=== PATIENT | female | born 1990 | race Caucasian/White ===

== ENCOUNTER 2017-07-30 08:00 | Outpatient (CLI) | payer MEDICAID | END 2017-07-30 08:01 | LOC: LAB.R 08:00 | PROVIDERS: ATTEND Obstetrics & Gynecology | DX: Z11.3 Encounter for screening for infections with a predominantly sexual mode of transmission (principal) | CPT/HCPCS: 87491; 87591 ==

== ENCOUNTER 2018-05-10 16:14 | Outpatient (CLI) | payer MEDICAID | END 2018-05-10 16:15 | disposition home or self-care (01) | LOC: LAB 16:14 | PROVIDERS: ATTEND Registered Nurse | DX: O20.9 Hemorrhage in early pregnancy, unspecified (principal); Z3A.00 Weeks of gestation of pregnancy not specified | CPT/HCPCS: 36415; 84702; 86900; 86901 ==

== ENCOUNTER 2018-05-11 16:57 | Outpatient (CLI) | payer MEDICAID ==
--- NOTE | 2018-05-11 18:39 | Ultrasound Report ---
Reason: VAGINAL BLEEDING,FIRST TRIMESTER Procedure Date: 05/11/2018 Accession Number: [id number] / [id number] Procedure: US - OB First Trimester CPT Code: FULL RESULT: EXAM: FIRST TRIMESTER OBSTETRIC ULTRASOUND (Less than 11 weeks) EXAM DATE: 05/11/2018 05:36 PM. CLINICAL HISTORY: 28-year-old female. VAGINAL BLEEDING,FIRST TRIMESTER. LMP: 03/22/2018. COMPARISONS: None. TECHNIQUE: Transabdominal and transvaginal ultrasound examination with static image documentation. CLINICAL DATES: EGA 7 weeks 1 day with LIAT 12/27/2018 based on LMP. ASSESSMENT: Gestational Sac: Single intrauterine. Somewhat flattened/elongated. Mean gestational sac diameter: 9.7 mm = 5 weeks 0 days. Embryo: Not identified. Yolk sac: Not identified. Amniotic fluid: Not accurately assessed at this gestational age. Early placenta: Not visible at this gestational age. Other: No perigestational fluid collection demonstrated. The endometrium has a somewhat dynamic appearance on real-time imaging. MATERNAL STRUCTURES: Uterus: Anteverted. Unremarkable. Cervix: Closed. Right Ovary/Adnexa: The ovary measures 3.6 x 1.9 x 3.2 cm, volume 11.4 cc. Unremarkable. Left Ovary/Adnexa: The ovary measures 2.0 x 1.6 x 2.4 cm, volume 4.0 cc. Unremarkable. Free Fluid: Trace. Other: None. IMPRESSION: 1. Single intrauterine at EGA 5 weeks 0 days based on mean sac diameter, which is discordant with EGA 7 weeks 1 day based on LMP. Ultrasound follow-up after 2 weeks could be used to reassess viability. 2. No perigestational hemorrhage is identified. RADIA
== END 2018-05-11 16:58 | disposition home or self-care (01) ==
LOC: DI 16:57
PROVIDERS: ATTEND Registered Nurse
DX: O46.91 Antepartum hemorrhage, unspecified, first trimester (principal)
CPT/HCPCS: 76801; 76817

== ENCOUNTER 2018-10-15 09:46 | Outpatient (CLI) | payer MEDICAID ==
--- NOTE | 2018-10-16 15:12 | Ultrasound Report ---
Reason: HX OF ECTOPIC , POSITIVE PREGANCY TEST Procedure Date: 10/15/2018 Accession Number: [id number] / [id number] Procedure: US - OB First Trimester CPT Code: FULL RESULT: EXAM: FOLLOW-UP OBSTETRICAL ULTRASOUND EXAM DATE: 10/15/2018 10:15 AM. CLINICAL HISTORY: HX OF ECTOPIC , POSITIVE TEST. The patient believes she had a miscarriage after exam 05/11/2018. COMPARISON: 05/11/2018 5:09 PM. TECHNIQUE: Real-time sonographic evaluation of the fetus performed by the prevention coordinator. Multiple sales representative consultant static images were saved for review. DATING: LMP: Unknown. EGA 22 weeks, 3 days with LIAT 02/15/2019 based on the current ultrasound. GENERAL EVALUATION Enciso . Cardiac activity: 147 bpm. movement: Visualized. Presentation: Cephalic. Placenta: Posterior position. Amniotic fluid: Normal. BERNARDO 12.7 cm. MVP 3.5 cm. BIOMETRY Bi-Parietal Diameter (BPD): 5.4 cm, 22 weeks, 4 days Head Circumference (HC): 20 cm, 22 weeks, 3 days Abdominal Circumference (AC): 17 cm, 22 weeks, 0 days Femur Length (FL): 3.9 cm, 22 weeks, 3 days Estimated Weight: 486 g, 72 g . ANATOMY No anatomic abnormality evident on limited views for biometry. A full survey was not performed. MATERNAL STRUCTURES Cervix appeared long and closed measuring 4.4 cm on transabdominal imaging. Uterus and bilateral adnexal regions appear unremarkable. Neither ovary was identified. IMPRESSION: 1. Enciso live intrauterine with gestational age 22 weeks, 3 days based on present ultrasound. 2. A full survey was not performed today. Suggest routine survey to further assess. TYRONE
== END 2018-10-15 09:47 | disposition home or self-care (01) ==
LOC: DI 09:46
PROVIDERS: ATTEND Obstetrics & Gynecology
DX: O09.12 Supervision of pregnancy with history of ectopic pregnancy, second trimester (principal); Z3A.22 22 weeks gestation of pregnancy
CPT/HCPCS: 76801

== ENCOUNTER 2018-10-28 11:34 | Outpatient (CLI) | payer MEDICAID ==
[2018-10-28 15:43] LABS: BILIRUBIN,URINE NEGATIVE (NEGATIVE); GLUCOSE, URINE (UA) NEGATIVE (NEGATIVE); KETONES,URINE (UA) NEGATIVE (NEGATIVE); LEUKOCYTE ESTERASE, URINE SMALL (NEGATIVE); NITRITE,URINE NEGATIVE (NEGATIVE); OCCULT BLOOD,URINE NEGATIVE (NEGATIVE); PROTEIN,URINE NEGATIVE (NEGATIVE); UROBILINOGEN,URINE 0.2 (NORMAL) E.U./dL (NORMAL)
[2018-10-28 15:50] LABS: CLARITY,URINE CLEAR (CLEAR)
[2018-10-28 15:51] LABS: BACTERIA,URINE Rare /HPF (None Seen); RBC,URINE None Seen /HPF (0-5); SQUAMOUS EPITHELIAL CELL,UR MANY Squamous (<= Few)
[2018-10-28 23:17] LABS: CANDIDA GROUP DNA NEGATIVE (NEGATIVE); CANDIDA KRUSEI DNA NEGATIVE (NEGATIVE); TRICHOMONAS VAGINALIS DNA NEGATIVE (NEGATIVE)
== END 2018-10-28 23:59 | disposition home or self-care (01) ==
LOC: LAB.R 11:34
PROVIDERS: ATTEND Obstetrics & Gynecology
DX: Z34.90 Encounter for supervision of normal pregnancy, unspecified, unspecified trimester (principal)
CPT/HCPCS: 80306; 81001; 81599; 87086; 87661; 87801

== ENCOUNTER 2018-11-10 08:47 | Outpatient (CLI) | payer MEDICAID ==
--- NOTE | 2018-11-12 10:05 | Ultrasound Report ---
Reason: SUPERVISION OF NORMAL Procedure Date: 11/10/2018 Accession Number: [id number] / [id number] Procedure: US - OB Detailed Eval CPT Code: FULL RESULT: EXAM: COMPLETE OBSTETRICAL ULTRASOUND EXAM DATE: 11/10/2018 10:37 AM. CLINICAL HISTORY: anatomic survey. COMPARISON: OB DETAILED EVAL 08/23/2015 12:43 PM. TECHNIQUE: Real-time sonographic evaluation of the fetus performed by the wafer slicer. Multiple financial services sales representative static images were saved for review. DATING: The examination is somewhat limited by late gestational age. Established EGA 26 weeks 1 day with LIAT 02/15/2019 based on first ultrasound. EGA 25 weeks 0 days with LIAT 02/23/2019 based on the current ultrasound. GENERAL EVALUATION Enciso . Cardiac activity: 149 bpm. movement: Visualized. Presentation: Breech Placenta: Posterior position. No evidence for previa. Umbilical cord: 3 vessel cord. Central placental cord origin. Amniotic fluid: Subjectively normal. MVP 4.1 cm and BERNARDO 15.3 cm. BIOMETRY Bi-Parietal Diameter (BPD): 6.1 cm, 24 weeks 5 days Head Circumference (HC): 23.2 cm, 25 weeks 2 days Abdominal Circumference (AC): 19.3 cm, 24 weeks 0 days Femur Length (FL): 4.7 cm, 25 weeks 6 days Estimated Weight: 739 g, 5th percentile for 26 weeks 1 day. ANATOMY The intracranial structures, profile, face/nose/lips, spine, 4 chamber heart and outflow tracts, stomach, abdominal wall and cord insertion, diaphragm, kidneys, bladder, and extremities were visualized and demonstrate no abnormality. MATERNAL STRUCTURES Uterus: Unremarkable. Cervix: Long and closed. Transabdominal length 4.2 cm. Right ovary/adnexa: Unremarkable. Left ovary/adnexa: Unremarkable. Free fluid: None. IMPRESSION: 1. Enciso live intrauterine with gestational age 26 weeks 1 day based on working due date as established by first ultrasound. 2. Interval growth is suggestive of intrauterine growth retardation, symmetric. Umbilical artery Doppler should be performed. Recommend serial followup ultrasound (not more frequently than every 2 weeks, generally recommended to be every 3-4 weeks) for growth assessment and uterine artery Doppler in conjunction with standard surveillance (NST and/or BPP) 3. Normal anatomic survey. No anatomic abnormalities are detected at this time. RADIA The call report notification system was initiated by Dr. Narinder Davila at 10:03 AM on 11/12/2018. The above call report findings were discussed with Dr. Machado by Dr. Narinder Davila at 10:09 AM on 11/12/2018.
== END 2018-11-10 08:48 | disposition home or self-care (01) ==
LOC: DI 08:47
PROVIDERS: ATTEND Obstetrics & Gynecology
DX: Z34.92 Encounter for supervision of normal pregnancy, unspecified, second trimester (principal)
CPT/HCPCS: 36415; 76811; 81599; 82950; 85025; 86762; 86803; 86850; 86900; 86901; 87340; 87389

== ENCOUNTER 2018-11-10 10:33 | Outpatient (CLI) | payer MEDICAID ==
[2018-11-10 12:04] LABS: BASOPHILS % (AUTO) 0.1 %; EOSINOPHILS # (AUTO) 0.1 10^3/uL (0.0-0.7); EOSINOPHILS % (AUTO) 1.5 %; HGB - HEMOGLOBIN 11.8 g/dL (12.0-16.0); LYMPHOCYTES # (AUTO) 1.6 10^3/uL (1.5-3.5); MEAN CORPUSCULAR HEMOGLOBIN 29.9 pg (27.0-31.0); MEAN CORPUSCULAR HGB CONC 33.2 g/dL (32.0-36.0); MEAN CORPUSCULAR VOLUME 89.9 fL (81.0-99.0); MEAN PLATELET VOLUME 9.2 fL (7.9-10.8); MONOCYTES # (AUTO) 0.3 10^3/uL (0.0-1.0); MONOCYTES % (AUTO) 4.2 %; NEUTROPHILS % (AUTO) 70.8 %; PLT - PLATELET COUNT 152 10^3/uL (130-450); RED BLOOD COUNT 3.95 10^6/uL (4.20-5.40); RED CELL DISTRIBUTION WIDTH 13.6 % (12.0-15.0); WHITE BLOOD COUNT 7.1 x10^3/uL (4.8-10.8)
[2018-11-11 15:21] LABS: HIV AG/AB 4TH GEN NON-REACTIVE (NON-REACTIVE)
[2018-11-11 16:56] LABS: HEPATITIS B SURFACE ANTIGEN NON-REACTIVE (NON-REACTIVE); HEPATITIS C ANTIBODY NON-REACTIVE (NON-REACTIVE)
== END 2018-11-10 10:34 | disposition home or self-care (01) ==
LOC: LAB 10:33
PROVIDERS: ATTEND Obstetrics & Gynecology
DX: Z34.90 Encounter for supervision of normal pregnancy, unspecified, unspecified trimester (principal)
CPT/HCPCS: 36415; 81599; 82950; 85025; 86762; 86803; 86850; 86900; 86901; 87340; 87389

== ENCOUNTER 2018-12-17 08:00 | Outpatient (CLI) | payer MEDICAID | END 2018-12-17 23:59 | disposition home or self-care (01) | LOC: LAB.R 08:00 | PROVIDERS: ATTEND Obstetrics & Gynecology | DX: N30.00 Acute cystitis without hematuria (principal) | CPT/HCPCS: 87086 ==

== ENCOUNTER 2018-12-26 10:08 | Emergency (ER) | payer MEDICAID ==
[2018-12-26] MEDS ORDERED: CYCLOBENZAPRINE 10 MG TABLET PO STA (10:30)
--- NOTE | 2018-12-26 10:32 | ED Physician Documentation ---
PD HPI BACK PAIN - Stated complaint Stated Complaint: BACK PX - Chief complaint Chief Complaint: Back Pain - History obtained from History obtained from: Patient - History of Present Illness Timing - onset: Last night Timing - duration: Days (1) Timing - details: Gradual onset Pain level max: 10 Pain level now: 10 Location: Lower, Right, Left Quality: Pain, Spasm Associated symptoms: No: Fever, Weakness, Numbness, Incontinent of urine, Unable to urinate, Hematuria, Incontinent of stool Improves with: Rest Worsened by: Movement Similar symptoms before: Has not had sx before - Additional information Additional information: 28-year-old female 4 para 3 approximately 33 weeks . Presents with low back pain. Feels like spasming. States it is difficult to walk and stand up straight. Took Tylenol without relief. Review of Systems Constitutional: denies: Fever, Chills Respiratory: denies: Cough GI: denies: Vomiting, Diarrhea : denies: Dysuria, Frequency, Hesitancy, Incontinent Skin: denies: Rash Musculoskeletal: denies: Neck pain Neurologic: denies: Focal weakness, Numbness, Headache PD PAST MEDICAL HISTORY - Past Medical History Past Medical History: No - Past Surgical History Past Surgical History: Yes /FLORIST: Dilation and currettage - Present Medications Home Medications: Ambulatory Orders Medication Instructions Recorded Confirmed Ibuprofen [Motrin] 800 mg PO Q8H PRN #30 tablet 12/12/15 Cyclobenzaprine [Flexeril] 10 mg PO TID PRN #20 tablet 12/26/18 - Allergies Allergies/Adverse Reactions: Allergies Allergy/AdvReac Type Severity Reaction Status Date / Time No Known Drug Allergies Allergy Verified 04/25/13 03:34 - Social History Does the pt smoke?: No Smoking Status: Never smoker Does the pt drink ETOH?: No Does the pt have substance abuse?: No - Immunizations Immunizations are current?: Yes PD ED PE NORMAL - Vitals Vital signs reviewed: Yes - General General: Alert and oriented X 3, No acute distress, Well developed/nourished - HEENT HEENT: Moist mucous membranes - Neck Neck: Supple, no meningeal sign - Cardiac Cardiac: RRR, Strong equal pulses - Respiratory Respiratory: No respiratory distress, Clear bilaterally - Abdomen Abdomen: Soft, Non tender, Non distended - Back Back: No spinal TTP (No midline tenderness to palpation. No step-off or deformity. Paraspinal spasm present bilateral low lumbar.) - Derm Derm: Warm and dry, No rash - Extremities Extremities: No edema, Other (Normal bilateral lower extremity patellar and ankle jerk reflexes. Normal great toe extension bilaterally. no saddle anesthesia) - Neuro Neuro: Alert and oriented X 3, No motor deficit, No sensory deficit - Psych Psych: Normal mood, Normal affect Results - Vitals Vitals: Vital Signs - 24 hr 12/26/18 12/26/18 12/26/18 10:11 11:10 11:41 Temperature 36 C L 36.3 C L Heart Rate 95 78 74 Respiratory 18 17 17 Rate Blood Pressure 110/78 119/76 119/74 O2 Saturation 100 99 99 Oxygen O2 Source Room air - Labs Labs: Laboratory Tests 12/26/18 12/26/18 12/26/18 10:39 10:39 11:00 WBC 8.4 RBC 4.30 Hgb 13.0 Hct 37.9 MCV 88.1 MCH 30.2 MCHC 34.3 RDW 13.3 Plt Count 154 MPV 9.0 Neut # (Auto) 6.2 Lymph # (Auto) 1.6 [place] # (Auto) 0.4 Eos # (Auto) 0.1 Baso # (Auto) 0.0 Absolute Nucleated RBC 0.00 Nucleated RBC % 0.0 Sodium 139 Potassium 3.4 L Chloride 108 Carbon Dioxide 22 Anion Gap 9.0 BUN 6 Creatinine 0.5 Estimated GFR (MDRD) 146 Glucose 89 Calcium 9.1 Total Bilirubin < 0.2 L AST 16 ALT 11 Alkaline Phosphatase 76 Total Protein 6.7 Albumin 3.3 Globulin 3.4 Albumin/Globulin Ratio 1.0 Lipase 26 Urine Color YELLOW Urine Clarity CLEAR Urine pH 7.5 Ur Specific [place] 1.010 Urine Protein NEGATIVE Urine Glucose (UA) NEGATIVE Urine Ketones NEGATIVE Urine Occult Blood NEGATIVE Urine Nitrite NEGATIVE Urine Bilirubin NEGATIVE Urine Urobilinogen 0.2 (NORMAL) Ur Leukocyte Esterase MODERATE H Urine RBC 0-5 Urine WBC 4-5 Ur Squamous Epith Cells MOD Squamous H Urine Bacteria Rare Ur Microscopic Review INDICATED Urine Culture Comments NOT INDICATED PD MEDICAL DECISION MAKING - ED course Complexity details: reviewed results, re-evaluated patient, considered differential, d/w patient, d/w family, d/w sales and leasing consultant (Discussed the case with Dr. Esqueda, OB on-call who recommends Flexeril for the spasm.) ED course: Patient feels much better after Flexeril. OB nurses came to the department and monitored the patient. No evidence of labor at this time. We will follow-up with OB for further care. Patient counseled regarding signs and symptoms for which I believe and urgent re-evaluation would be necessary. Patient with good understanding of and agreement to plan and is comfortable going home at this justo e This document was made in part using voice recognition software. While efforts are made to proofread this document, sound alike and grammatical errors may occur. Departure - Departure Disposition: 01 Home, Self Care Clinical Impression: Back spasm Condition: Good Instructions: ED Spasm Back No Trauma Follow-Up: Ovidio Tirado MD [Provider Admit Priv/Credential] - Within 3 Days Prescriptions: Cyclobenzaprine [Flexeril] 10 mg PO TID PRN #20 tablet PRN Reason: Spasms Comments: Return if you worsen. Follow-up with OB for further care. You can take Tylenol at home as well. You can use heating pads and gentle stretching as well. Do not drive or operate heavy machinery while taking the Flexeril Discharge Date/Time: 12/26/18 11:40
[2018-12-26 10:45] LABS: BASOPHILS % (AUTO) 0.2 %; EOSINOPHILS # (AUTO) 0.1 10^3/uL (0.0-0.7); LYMPHOCYTES # (AUTO) 1.6 10^3/uL (1.5-3.5); LYMPHOCYTES % (AUTO) 19.1 %; MEAN CORPUSCULAR HEMOGLOBIN 30.2 pg (27.0-31.0); MEAN CORPUSCULAR HGB CONC 34.3 g/dL (32.0-36.0); MEAN CORPUSCULAR VOLUME 88.1 fL (81.0-99.0); MONOCYTES # (AUTO) 0.4 10^3/uL (0.0-1.0); MONOCYTES % (AUTO) 5.2 %; NEUTROPHILS # (AUTO) 6.2 10^3/uL (1.5-6.6); NEUTROPHILS % (AUTO) 73.9 %; PLT - PLATELET COUNT 154 10^3/uL (130-450); RED CELL DISTRIBUTION WIDTH 13.3 % (12.0-15.0); WHITE BLOOD COUNT 8.4 x10^3/uL (4.8-10.8)
[2018-12-26 11:06] LABS: ALBUMIN 3.3 g/dL (3.2-5.5); ALKALINE PHOSPHATASE 76 IU/L (42-121); ALT ALANINE AMINOTRANSFERASE 11 IU/L (10-60); AST ASPARTATE AMINOTRANSFERASE 16 IU/L (10-42); BILIRUBIN,TOTAL < 0.2 mg/dL (0.2-1.0); BUN - BLOOD UREA NITROGEN 6 mg/dL (6-20); CALCIUM 9.1 mg/dL (8.5-10.3); CARBON DIOXIDE - CO2 22 mmol/L (21-32); CHLORIDE 108 mmol/L (101-111); CREATININE 0.5 mg/dL (0.4-1.0); GFR - MDRD 146 (>89); GLUCOSE 89 mg/dL (70-100); LIPASE 26 U/L (22-51); SODIUM 139 mmol/L (135-145); TOTAL PROTEIN 6.7 g/dL (6.7-8.2)
[2018-12-26 11:42] VITALS: BP 119/74
[2018-12-26 11:46] LABS: BILIRUBIN,URINE NEGATIVE (NEGATIVE); GLUCOSE, URINE (UA) NEGATIVE (NEGATIVE); KETONES,URINE (UA) NEGATIVE (NEGATIVE); LEUKOCYTE ESTERASE, URINE MODERATE (NEGATIVE); NITRITE,URINE NEGATIVE (NEGATIVE); OCCULT BLOOD,URINE NEGATIVE (NEGATIVE); PH,URINE 7.5 PH (5.0-7.5); PROTEIN,URINE NEGATIVE (NEGATIVE); UROBILINOGEN,URINE 0.2 (NORMAL) E.U./dL (NORMAL)
[2018-12-26 11:57] LABS: CLARITY,URINE CLEAR (CLEAR)
[2018-12-26 12:00] LABS: BACTERIA,URINE Rare /HPF (None Seen); RBC,URINE 0-5 /HPF (0-5); SQUAMOUS EPITHELIAL CELL,UR MOD Squamous (<= Few)
--- NOTE | 2018-12-29 14:36 | PROCEDURE REPORT ---
- HPI Vital Signs Temperature 36 C L 12/26/18 10:11 Heart Rate 95 12/26/18 10:11 Respiratory Rate 18 12/26/18 10:11 Blood Pressure 110/78 12/26/18 10:11 O2 Saturation 100 12/26/18 10:11 Temperature 36.3 C L 12/26/18 11:41 Heart Rate 74 12/26/18 11:41 Respiratory Rate 17 12/26/18 11:41 Blood Pressure 119/74 12/26/18 11:41 O2 Saturation 99 12/26/18 11:41 The patient was seen in the emergency room by the emergency room physician who ordered an NST.She was in the emergency room for non-OB related issue. - NST Procedure The NST was reactive. This was read on 12/29/2018. - Results and Plan Findings/Impression: Impression: Reactive NST planPatient will follow-up in the office for her usual visit.
== END 2018-12-26 11:40 | disposition home or self-care (01) ==
LOC: ED 10:08
DX: O99.89 Other specified diseases and conditions complicating pregnancy, childbirth and the puerperium (principal); M62.830 Muscle spasm of back
CPT/HCPCS: 36415; 80053; 81001; 83690; 85025; 99283; 99284; A9270; 81003; 87086

== ENCOUNTER 2019-01-21 08:00 | Outpatient (CLI) | payer MEDICAID | END 2019-01-21 23:59 | disposition home or self-care (01) | LOC: LAB.R 08:00 | PROVIDERS: ATTEND Obstetrics & Gynecology | DX: Z34.90 Encounter for supervision of normal pregnancy, unspecified, unspecified trimester (principal) | CPT/HCPCS: 87797 ==

== ENCOUNTER 2019-02-05 11:56 | Inpatient (IN) | payer MEDICAID ==
[2019-02-05] MEDS ORDERED: ONDANSETRON 4 MG/2 ML VIAL IVP PRN (14:15)
[2019-02-05] MEDS ORDERED: fentaNYL 100 MCG/2 ML VIAL IVP PRN (14:15)
[2019-02-05] MEDS ORDERED: SODIUM CHLORIDE FLUSH 0.9% 10 ML SYRINGE IVP PRN (14:15)
[2019-02-05] MEDS ORDERED: AMPICILLIN 2 GM in SODIUM CHLORIDE 0.9% MINIBAG 100 ML IV ONE (14:15)
[2019-02-05] MEDS ORDERED: miSOPROStol 200 MCG TABLET ONE (14:18)
[2019-02-05] MEDS ORDERED: OXYTOCIN/DEXTROSE 5 % 30 UNIT/500 ML BAG IV ONE (14:19)
[2019-02-05] MEDS ORDERED: LACTATED RINGERS 1,000 ML IV ONE (14:19)
[2019-02-05] MEDS ORDERED: SODIUM CHLORIDE FLUSH 0.9% 10 ML SYRINGE ONE (14:19)
--- NOTE | 2019-02-05 14:21 | HISTORY & PHYSICAL EXAMINATION ---
Admit History - Smoking Status: Never smoker - Mother's Labs Mother's Blood Type: positive: O Mother's RH: positive: Positive GBS: positive: Group B Strep Positive Rubella Status: positive: Immune - Other Maternal History Other Maternal History: Chief complaint: Contractions History chief complaint: Patient is a well-developed, well-nourished, 28 -year-old 7 para 3-0-3-3 white female with a LIAT of 02/15/2019 making her 38 weeks and 4 days gestation today. She comes in with today with a complaint of contractions for the past 4 days. They got stronger over the last 24 hours. She denies any vaginal bleeding or fluid.She is O positive rubella immune and GBS positive. She does know that she will need antibiotic prophylaxis during labor.Her course has been essentially unremarkable. Meds/Allgy - Home Medications Home Medications: Ambulatory Orders Medication Instructions Recorded Confirmed Ibuprofen [Motrin] 800 mg PO Q8H PRN #30 tablet 12/12/15 Cyclobenzaprine [Flexeril] 10 mg PO TID PRN #20 tablet 12/26/18 - Allergies Allergies/Adverse Reactions: Allergies Allergy/AdvReac Type Severity Reaction Status Date / Time No Known Drug Allergies Allergy Verified 04/25/13 03:34 Review of Systems - Constitutional Constitutional: denies: Fatigue, Fever, Chills, Malaise - Eyes Eyes: denies: Pain, Irritation, Amaurosis, Blurred vision, Spots in vision, Field loss - Ears, Nose & Throat Ears, Nose & Throat: reports: Postnasal drainage. denies: Ear pain, Hearing loss, Hearing aids, Tinnitus, Vertigo, Nasal pain, Nasal discharge, Nasal obstruction, Sore throat, Hoarseness, Mouth lesions - Cardiovascular Cariovascular: denies: Irregular heart rate, Palpitations, Chest pain, Edema, Lightheadedness, Syncope, Exertional dyspnea - Respiratory Respiratory: denies: Cough, Sputum production, Wheezing, Snoring, Hemoptysis, Orthopnea - Gastrointestinal Gastrointestinal: denies: Abdominal pain, Abdominal distention, Diarrhea, Change in bowel habits, Black stools, Nausea, Vomiting, Bile emesis - Genitourinary Genitourinary: denies: Dysuria, Urgency, Hematuria, Incontinence, Flank pain, Urethral discharge - Musculoskeletal Musculoskeletal: denies: Muscle pain, Muscle aches, Stiffness, Limited range of motion, Muscle weakness, Gout - Integumentary Integumentary: denies: Rash, Pruritis, Lesions, Dryness, Lumps - Neurological Neurological: denies: General weakness, Focal weakness, Headache, Dizziness, Numbness - Psychiatric Psychiatric: denies: Depression, Anxiety, Suicidal, Delusions, Hallucinations - Endocrine Endocrine: denies: Polyuria, Polydypsia, Polyphagia, Intolerance to cold, Intolerance to heat - Hematologic/Lymphatic Hematologic/Lymphatic: denies: Anemia, Bruising, Petechiae, Blood clots, Lymphadenopathy, Bleeding tendencies Physical - Abdominal Exam Vital Signs: Temp Pulse Resp BP Pulse Ox 36.6 C 69 20 113/73 100 02/05/19 12:09 02/05/19 12:09 02/05/19 12:09 02/05/19 12:09 02/05/19 12:09 Contraction Frequency (min/apart): 3-6 Contraction Intensity: positive: Moderate to strong Uterine Resting Tone: positive: Soft - Monitoring Strip Review: positive: Category I - Presentation Presentation: positive: Vertex - Vaginal Exam Membranes: positive: Membranes intact Dilation (in cm): 4 Effacement (%): 90 Station: positive: -1 Cervical Position: positive: Midposition - Other Notes Labor Progress Note/Additional Text: Heart: Heart has a regular rate and rhythm without murmur Lungs: Lungs are clear to auscultation bilaterally Abdomen: The abdomen is soft, pliable and nontender. The uterus is soft and nontender between moderate to firm contractions. Pelvic. The cervix is dilated 4 cm / 90%/-1 There is a category 1 EFM noted Plan for Labor - Plan For Labor I expect patient to be DC'd or transferred within 96 hours.: Yes Plan for Labor: Impression: Intrauterine at 38 weeks 4 days gestation Latent phase labor GBS positive Plan:This patient is going to be admitted for labor. She will be given prophylactic antibiotics. We will follow her closely.
[2019-02-05 14:45] LABS: BASOPHILS % (AUTO) 0.2 %; EOSINOPHILS # (AUTO) 0.1 10^3/uL (0.0-0.7); EOSINOPHILS % (AUTO) 0.8 %; HGB - HEMOGLOBIN 12.3 g/dL (12.0-16.0); LYMPHOCYTES # (AUTO) 1.8 10^3/uL (1.5-3.5); LYMPHOCYTES % (AUTO) 18.1 %; MEAN CORPUSCULAR HEMOGLOBIN 30.2 pg (27.0-31.0); MEAN CORPUSCULAR HGB CONC 33.7 g/dL (32.0-36.0); MEAN CORPUSCULAR VOLUME 89.7 fL (81.0-99.0); MEAN PLATELET VOLUME 9.7 fL (7.9-10.8); MONOCYTES # (AUTO) 0.5 10^3/uL (0.0-1.0); MONOCYTES % (AUTO) 5.2 %; NEUTROPHILS # (AUTO) 7.6 10^3/uL (1.5-6.6); NEUTROPHILS % (AUTO) 75.1 %; PLT - PLATELET COUNT 180 10^3/uL (130-450); RED BLOOD COUNT 4.07 10^6/uL (4.20-5.40); RED CELL DISTRIBUTION WIDTH 13.4 % (12.0-15.0); WHITE BLOOD COUNT 10.2 x10^3/uL (4.8-10.8)
[2019-02-05] MEDS ORDERED: LACTATED RINGERS 1,000 ML IV SCH ×2 (15:00→19:00)
--- NOTE | 2019-02-05 16:05 | PROVIDER PROGRESS NOTE ---
Labor Progress Note - Labor Progress Note Labor Progress Note/Additional Text: The patient cervix remains the same. She now has an IV going in her ampicillin is running.An attempt was made to rupture her membranes. I am truly not sure whether they ruptured or not. She does have a bloody show.There is a category 1 EFM noted. She is isaias every 3 minutes but they are truly now mild to moderate at most.We will continue to follow her closely.
--- NOTE | 2019-02-05 16:09 | PROVIDER PROGRESS NOTE ---
Labor Progress Note - Labor Progress Note Labor Progress Note/Additional Text: The patient is still isaias about every 3 minutes. They are moderate to firm. She got up to go to the bathroom and did have a big gush of clear fluid.There is still a category 1 EFM noted. Her cervix is now 6 cm dilated 80% and 0. We will continue to follow her closely.
[2019-02-05] MEDS ORDERED: SODIUM CHLORIDE FLUSH 0.9% 10 ML SYRINGE IVP SCH (17:00)
[2019-02-05] MEDS: ACETAMINOPHEN 325 MG TABLET PO SCH (17:09)
--- NOTE | 2019-02-05 17:44 | PROVIDER PROGRESS NOTE ---
Labor Progress Note - Labor Progress Note Labor Progress Note/Additional Text: The patient became more uncomfortable. A check of her cervix reveals the cervix to be complete with respect to cervical dilatation. The fetus is at a 0 to +1 station.A category 1 EFM is still appreciated. She is isaias every 2 to 3 minutes with firm contractions.She cannot really feel her contractions though she is complaining of pain. We will have anesthesia come to reassess the epidural. We I talked to the patient about still being able to feel contractions when they happen so that she can push.We will let the fetus labor down over the next hour. And As long as the fetus remains stable We will begin with expulsatory efforts after that.
[2019-02-05] MEDS ORDERED: HYDROcod/ACETAM 5/325 MG TABLET PO PRN (17:45)
--- NOTE | 2019-02-05 17:55 | DELIVERY NOTE ---
Delivery Note - Labor Labor: positive: Spontaneous - Delivery Method Delivery Method: positive: Spontaneous vaginal delivery - Presentation Presentation: positive: Vertex, MATTI - right occiput anterior - Nuchal Cord Nuchal Cord: positive: None - Amniotic Fluid Description Amniotic Fluid Description: positive: Clear - Episiotomy Type Episiotomy Type: positive: None - Laceration Laceration: positive: None - Delivery Outcome Delivery Outcome: positive: Livebirth - [place]: positive: Placed in direct skin contact with mother [place] sex: positive: Female : Apgars 9 and 9 - Cord Cord: positive: 3 vessels - Placenta Placenta: positive: Intact, Spontaneous - Estimated Blood Loss Estimated Blood Loss (in cc): 100 - Post Delivery Events Post Delivery Events: positive: No post delivery events - Delivery Comments (Free Text/Narrative) Delivery Comments (Free Text/Narrative): The patient came to Labor and delivery earlier this afternoon complaining of contractions for the last 2 days. Her cervix was 4 cm at the time membranes were intact. She was admitted and IV was begun she was given ampicillin 2 g IV to load and prophylaxis because she is GBS positive.She actually followed a somewhat precipitous multiparous labor curve and was found to be complete with respect to cervical dilatation approximately 1720 hrs. There was a category 1 EFM noted noted through the entire labor and delivery process. The patient reached complete with respect to cervical dilatation at approximately 17 2000 hrs. The fetus was now at a +2 to +3 station.At 17 2500 hours she delivered a viable female over an intact perineum. Upon delivery needle head the start of the neck was checked for any cords and none were noted. The rest of the was then delivered and passed up onto the mother's chest.This was a very precipitous delivery. Once the cord it stopped pulsating it was doubly clamped. The father of the baby then cut the cord.The placenta was then delivered intact with 3 vessels at approximately 17 32 hours. 30 units Pitocin IV drip were given. The cervix and the vaginal vault were found to be intact. The uterus was isaias down firmly lochia was exceptionally light. Estimated blood loss was 100 mL's.The fetus is a viable female whose weight is pending at the present time. She had Apgars of 9 and 9 at 1 and 5 minutes respectively.Both the and the patient were allowed to remain in the LDR P both in stable condition.
[2019-02-05] MEDS ORDERED: OXYTOCIN/DEXTROSE 5 % 30 UNIT/500 ML BAG IV PRN (18:01)
[2019-02-05] MEDS: IBUPROFEN 600 MG TABLET PO SCH (22:40)
[2019-02-06] MEDS: ACETAMINOPHEN 325 MG TABLET PO SCH ×4 (01:06→22:25)
[2019-02-06] MEDS: IBUPROFEN 600 MG TABLET PO SCH ×3 (04:40→18:57)
--- NOTE | 2019-02-06 10:09 | PROVIDER PROGRESS NOTE ---
Subjective - Prog Note Date Prog Note Date: 02/06/19 Prog Note Time: 10:06 - Subjective Subjective: The patient is doing well and is without complaint. She is breast-feeding well. She exam very well and tolerating diet well. She is voiding without difficulty. Lochia is light. Objective - Vital Signs/Intake & Output Vital Signs: Vital Signs x48h Temp Pulse Resp BP Pulse Ox 02/06/19 08:07 36.9 C 72 16 114/68 96 02/06/19 04:42 36.7 C 65 16 101/71 99 Intake & Output: Intake & Output 02/03/19 02/04/19 02/05/19 02/06/19 23:59 23:59 23:59 23:59 Intake Total 1250 500 Output Total 1650 Balance -400 500 - Objective General Appearance: positive: No acute distress, Alert Abdomen: positive: Non-tender, No organomegaly, Nml bowel sounds (The uterus is firm 2 FB below the umbilicus. It is nontender.) - Lab Results Fish Bones: 02/05/19 14:15 Other Labs: Lab Results x24hrs 02/05/19 Range/Units 14:15 WBC 10.2 (4.8-10.8) x10^3/uL RBC 4.07 L (4.20-5.40) 10^6/uL Hgb 12.3 (12.0-16.0) g/dL Hct 36.5 L (37.0-47.0) % MCV 89.7 (81.0-99.0) fL MCH 30.2 (27.0-31.0) pg MCHC 33.7 (32.0-36.0) g/dL RDW 13.4 (12.0-15.0) % Plt Count 180 (130-450) 10^3/uL MPV 9.7 (7.9-10.8) fL Neut # (Auto) 7.6 H (1.5-6.6) 10^3/uL Lymph # (Auto) 1.8 (1.5-3.5) 10^3/uL [place] # (Auto) 0.5 (0.0-1.0) 10^3/uL Eos # (Auto) 0.1 (0.0-0.7) 10^3/uL Baso # (Auto) 0.0 (0.0-0.1) 10^3/uL Absolute Nucleated RBC 0.00 x10^3/uL Nucleated RBC % 0.0 /100WBC Assessment/Plan - Problem List (1) Normal delivery at term Impression: day #1 - Stable Plan: Discontinue IV and IV meds. Continue routine care. Anticipate discharge tomorrow.
[2019-02-07] MEDS: IBUPROFEN 600 MG TABLET PO SCH ×2 (04:38→10:28)
[2019-02-07] MEDS: ACETAMINOPHEN 325 MG TABLET PO SCH ×2 (04:39→10:28)
--- NOTE | 2019-02-07 07:01 | PROVIDER PROGRESS NOTE ---
Subjective - Prog Note Date Prog Note Date: 02/07/19 Prog Note Time: 06:59 - Subjective Subjective: The patient continues to do well. She is without complaint today. She is ambulating well and tolerating diet well. She is voiding without difficulty. She is breast-feeding without difficulty. She would like to be discharged home today. Lochia is light. Objective - Vital Signs/Intake & Output Reviewed Vital Signs: Yes Vital Signs: Vital Signs x48h Temp Pulse Resp BP Pulse Ox 02/07/19 04:45 36.7 C 68 16 105/74 100 Intake & Output: Intake & Output 02/04/19 02/05/19 02/06/19 02/07/19 23:59 23:59 23:59 23:59 Intake Total 1250 500 Output Total 1650 Balance -400 500 - Objective Abdomen: positive: Non-tender (The uterus is firm and nontender 2 fingerbreadths below the umbilicus.), Nml bowel sounds - Lab Results Fish Bones: 02/05/19 14:15 Assessment/Plan - Problem List (1) Normal delivery at term Impression: Impression: Term delivery Plan: The patient will be discharged home. She was discharged home with both written and verbal instructions which included such things as: 1. No lifting, tampons douching or intercourse. 2. She is to report any temperatures greater than 100.4 or heavy vaginal bleeding 3. She is to continue her vitamins and increase her fluids 4. She is to use ibuprofen 600 mg p.o. 3 times daily PRN for pain. 5. She does not drive a car for the next 2 weeks 6. As long as she does well she will be seen in the office in 1 week for her initial visit.. She will be seen in the office in 6 weeks for her full visit.
--- NOTE | 2019-02-07 12:44 | DISCHARGE SUMMARY ---
Physician: Imer Esqueda DO DATE OF ADMISSION: 02/05/2019 DATE OF DISCHARGE: 02/07/2019 ADMITTING DIAGNOSES 1. Intrauterine at 38 weeks 4 days' gestation. 2. Latent phase labor. 3. Group B streptococcus positive. DISCHARGE DIAGNOSES 1. Delivery at 38 weeks 4 days' gestation. 2. Group B streptococcus positive. PROCEDURES: Spontaneous assisted vaginal delivery. LABORATORIES: Admit CBC revealed WBCs of 10.2, RBCs of 4.07, hemoglobin 12.3, hematocrit 36.5 with 180 platelets. HOSPITAL COURSE: Patient came to labor and delivery in the afternoon of 02/05 complaining of contractions that had been increasing over the past 4 days. Over the previous 24 hours they became much stronger. Her cervix was found to be 4 cm dilated, 90% effaced and -1 station. She was admitted and prophylactic antibiotics were begun. She was admitted to the hospital at approximately 1330. Her antibiotics were started around 1400 hours. She followed a normal multiparous labor curve and was found to be complete, with respect to cervical dilatation at approximately 1720 hours. A category 1 EFM was noted throughout the labor and delivery process. She then went on to deliver a viable female over an intact perineum. had Apgars of 9 and 9 at one and five minutes, respectively. One is referred to the delivery note for full details. On her first day, she was ambulating well and tolerating diet well. Uterus was firm and nontender, 2 fingerbreadths below the umbilicus. Her lochia was light to moderate. She was without difficulty. On her second day, she continued to do quite well. Vital signs were stable. She was afebrile. Lochia was light. She was without difficulty. She was anxious for discharge. It was felt the patient could be safely discharged home. DISCHARGE INSTRUCTIONS Patient discharged home with written and verbal instructions including such things as 1. She is to forego any lifting, tampons, douching or intercourse. 2. She is to report temperature greater than 100.4 or heavy vaginal bleeding. 3. She may use ibuprofen 600 mg p.o. t.i.d. p.r.n. cramping. 4. She is to increase her fluids and continue her vitamins. 5. She is not to drive a car for the next 2 weeks. 5. As long as she does well, we will see in the office in 1 week for an initial visit and in 6 weeks for her full visit. TD: 02/07/2019 10:18 RADHA
[2019-02-07 13:19] VITALS: BP 117/72
== END 2019-02-07 14:12 | disposition home or self-care (01) | DRG 807 ==
LOC: WFO 11:56 → FBP 11:58 → WFO 14:14 → FBP 14:15
PROVIDERS: ADMIT Obstetrics & Gynecology; ATTEND Obstetrics & Gynecology
PROC: 10E0XZZ Delivery of Products of Conception, External Approach (ICD-10-PCS; principal; 2019-02-05)
DX: O99.824 Streptococcus B carrier state complicating childbirth (principal); Z37.0 Single live birth; O62.3 Precipitate labor; Z3A.38 38 weeks gestation of pregnancy
CPT/HCPCS: 85025; 99213; A9270; J7120

== ENCOUNTER 2019-10-14 14:30 | Outpatient (CLI) | payer MEDICAID ==
--- NOTE | 2019-10-14 16:43 | Ultrasound Report ---
PROCEDURE: OB 14+ Weeks INDICATIONS: positive OUTSIDE/PRIOR DATING DATA: First dating scan (date and location): 10/14/2019. Estimated date of delivery (LIAT) from first dating scan: 03/17/2020. TECHNIQUE: Real-time scanning was performed of the fetuses, with image documentation and biometric measurements. Endovaginal scanning: Not performed COMPARISON: None. FINDINGS: General: An intrauterine monochorionic, diamnionic twin is visualized. Composite amniotic fluid index: Maximum vertical fluid pocket for twin A measures 4.7 cm. Maximum ve rtical fluid pocket for twin B is 3.7 cm Maternal cervical canal: 4.3 cm; normal length is 2.5 cm or more. FETUS A: Fetus is located on the maternal left side, and is in breech presentation. Largest amniotic fluid pocket: 4.7 cm, normal is 2-8 cm. Placental position is posterior, without previa. heart rate: 157 beats per minute. biometrics: Biparietal diameter: 4 cm, correlating with approximately 18 weeks and 01 day Head circumference: 14.3 cm, correlating with approximately 17 weeks and 4 days Abdominal circumference: 12.4 cm, correlating with approximately 18 weeks and 0 days Femur length: 2.7 cm, correlating with approximately 18 weeks and 0 days Estimated gestational age from initial scan: not applicable. Composite gestational age from present scan: 17 weeks and 6 days Estimated weight and percentile: 220 g Measurement variability in biometric dating: +/- 10 days from 12-20 weeks gestation, +/- 2 weeks from 20-30 weeks gestation, +/- 3 weeks at 30 weeks gestation or later. Limited visualization of the anatomic structures secondary to early gestational age. Visualized portions of the heart and stomach/abdomen, cord insertion, and bladder appear within normal li mits FETUS B: Fetus is located on the maternal right side, and is in breech presentation. Largest amniotic fluid pocket: 3.7 cm, normal is 2-8 cm. Placental position is posterior without previa. heart rate: 155 beats per minute. biometrics: Biparietal diameter: 3.9 cm, correlating with approximately 18 weeks and 0 days Head circumference: 14.5 cm, correlating with approximately 17 weeks and 5 days Abdominal circumference: 12.3 cm, correlating with approximately 17 weeks and 6 days Femur length: 2.4 cm, correlating with approximately 17 weeks and 2 days Estimated gestational age from initial scan: not applicable. Composite gestational age from present scan: 17 weeks and 5 days Estimated weight and percentile: 204 g Measurement variability in biometric dating: +/- 10 days from 12-20 weeks gestation, +/- 2 weeks from 20-30 weeks gestation, +/- 3 weeks at 30 weeks gestation or later. Limited visualization of the anatomic structures secondary to early gestational age. Visualized portions of the heart and stomach/abdomen, cord insertion, and bladder appear within normal li mits IMPRESSION: Twin living monochorionic, diamniotic intrauterine gestations with twin A measuring approximately 17 weeks and 6 days and twin B measuring approximately 17 weeks and 5 days. Recommend continued clinical surveillance and routine second trimester anatomic screening surve y. Reviewed by: Severino Case MD on 10/14/2019 4:41 PM PDT Approved by: Severino Case MD on 10/14/2019 4:41 PM PDT Station ID: [id number]
== END 2019-10-14 14:31 | disposition home or self-care (01) ==
LOC: DI 14:30
PROVIDERS: ATTEND Obstetrics & Gynecology
DX: O30.032 Twin pregnancy, monochorionic/diamniotic, second trimester (principal); Z3A.17 17 weeks gestation of pregnancy
CPT/HCPCS: 76805; 76810

== ENCOUNTER 2019-11-19 07:00 | Outpatient (CLI) | payer MEDICAID | END 2019-11-19 23:59 | disposition home or self-care (01) | LOC: LAB.R 07:00 | PROVIDERS: ATTEND Obstetrics & Gynecology | DX: O30.099 Twin pregnancy, unable to determine number of placenta and number of amniotic sacs, unspecified trimester (principal); Z3A.00 Weeks of gestation of pregnancy not specified | CPT/HCPCS: 82570; 84156 ==

== ENCOUNTER 2020-01-11 15:00 | Outpatient (CLI) | payer MEDICAID ==
[2020-01-11 16:30] LABS: HGB - HEMOGLOBIN 12.3 g/dL (12.0-16.0); MEAN CORPUSCULAR HEMOGLOBIN 30.6 pg (27.0-31.0); MEAN CORPUSCULAR HGB CONC 33.9 g/dL (32.0-36.0); MEAN CORPUSCULAR VOLUME 90.3 fL (81.0-99.0); MEAN PLATELET VOLUME 8.8 fL (7.9-10.8); RED BLOOD COUNT 4.02 10^6/uL (4.20-5.40); RED CELL DISTRIBUTION WIDTH 13.5 % (12.0-15.0); WHITE BLOOD COUNT 9.6 x10^3/uL (4.8-10.8)
== END 2020-01-11 15:01 | disposition home or self-care (01) ==
LOC: LAB 15:00
PROVIDERS: ATTEND Obstetrics & Gynecology
DX: O30.033 Twin pregnancy, monochorionic/diamniotic, third trimester (principal)
CPT/HCPCS: 36415; 82950; 85027; 86850

== ENCOUNTER 2020-01-13 09:55 | Inpatient (IN) | payer MEDICAID ==
[2020-01-13] MEDS ORDERED: BETAMETHASONE 30 MG/5 ML VIAL IM STA (10:09)
[2020-01-13] MEDS ORDERED: NIFEdipine 10 MG CAPSULE PO STA (10:14)
[2020-01-13 10:42] LABS: BILIRUBIN,URINE NEGATIVE (NEGATIVE); GLUCOSE, URINE (UA) NEGATIVE (NEGATIVE); KETONES,URINE (UA) NEGATIVE (NEGATIVE); LEUKOCYTE ESTERASE, URINE TRACE (NEGATIVE); NITRITE,URINE NEGATIVE (NEGATIVE); OCCULT BLOOD,URINE NEGATIVE (NEGATIVE); PROTEIN,URINE NEGATIVE (NEGATIVE); UROBILINOGEN,URINE 0.2 (NORMAL) E.U./dL (NORMAL)
[2020-01-13 10:45] LABS: CLARITY,URINE CLEAR (CLEAR)
[2020-01-13] MEDS: MAGNESIUM SULFATE 2 GRAM 2 GM/50 ML BAG IV SCH ×2 (10:51→10:55)
[2020-01-13 10:55] LABS: BACTERIA,URINE Rare /HPF (None Seen); EPITHELIAL CELLS,UR RARE Transitional /HPF (<= Few); SQUAMOUS EPITHELIAL CELL,UR MANY Squamous (<= Few)
[2020-01-13] MEDS ORDERED: AMPICILLIN 2 GM in SODIUM CHLORIDE 0.9% MINIBAG 100 ML IV SCH (10:57)
--- NOTE | 2020-01-13 10:57 | PROVIDER PROGRESS NOTE ---
Subjective - Subjective Subjective: No UC or VB NST category 1 x2 [place] one contraction in 20min Repeat SVE 5.5/75/-1 Will recheck SVE, has changed a bit but pt is a multip without contractions so hopefully this is a normally dynamic cervix. Hope to get transported to [facility] if stable. Our peds and anesthesia are aware. S/p BMZ and nifedipine. Start mag for neuroprotection and ampicllin for GBS prophylaxis due to change in cervix. vertex/vertex. Objective - Vital Signs/Intake & Output Vital Signs: Vital Signs x48h Temp Pulse Resp BP Pulse Ox 01/13/20 10:30 98.8 F 96 18 118/68 100 - Lab Results Other Labs: Lab Results x24hrs 01/13/20 Range/Units 10:15 Urine Color YELLOW Urine Clarity CLEAR (CLEAR) Urine pH 7.0 (5.0-7.5) PH Ur Specific [place] 1.015 (1.002-1.030) Urine Protein NEGATIVE (NEGATIVE) mg/dL Urine Glucose (UA) NEGATIVE (NEGATIVE) mg/dL Urine Ketones NEGATIVE (NEGATIVE) mg/dL Urine Occult Blood NEGATIVE (NEGATIVE) Urine Nitrite NEGATIVE (NEGATIVE) Urine Bilirubin NEGATIVE (NEGATIVE) Urine Urobilinogen 0.2 (NORMAL) (NORMAL) E.U./dL Ur Leukocyte Esterase TRACE H (NEGATIVE)
[2020-01-13] MEDS ORDERED: MAGNESIUM SULFATE IN WATER 20 GM/500 ML IV.SOLN IV SCH (11:00)
[2020-01-13] MEDS ORDERED: LACTATED RINGERS 1,000 ML IV ONE (11:52)
[2020-01-13] MEDS ORDERED: LACTATED RINGERS 1,000 ML IV SCH (12:00)
[2020-01-13] MEDS ORDERED: BUPIVACAINE 0.25%-EPI 1:200000 PF 30 ML VIAL ONE (12:04)
[2020-01-13] MEDS ORDERED: DEXTROSE 10% 500 ML IV ONE (12:10)
[2020-01-13] MEDS ORDERED: miSOPROStoL 200 MCG TABLET ONE (12:28)
[2020-01-13] MEDS ORDERED: CARBOPROST TROMETHAMINE 250 MCG/ML AMP IM ONE (12:29)
[2020-01-13] MEDS ORDERED: METHYLERGONOVINE 0.2 MG/ML VIAL ONE (12:29)
--- NOTE | 2020-01-13 12:37 | HISTORY & PHYSICAL EXAMINATION ---
History of Present Illness - History of Present Illness HPI Comment/Other: CC: sent to hospital by MD for cervical dilation HPI: feeling a bit more contractions than usual, nothing really different today, does not feel like she is in labor. No VB, no LOF. Good FM x2. SVE check in clinic was 5cm and so patient was sent to L&D for treatment. ROS: no fevers, no URI sx PMH: hx of CIN3. Asthma on the chart but delied by pt. PSH: LSC for ectopic, LEEP 2018. Allergies: NKDA Meds: PNV, iron SH: former smoker, current THC. FH: alcoholism OB: , last delivery was 01/2019. mo/di twins concord O: AVSS Alert, nervous, NAD. Grimaced with contraction x2. EFG normal. SVE /-2 in clinic to /0 now. Category 1 NST x2 [place] not picking up well. US in clinic: vertex/vertex A/P: 29yo at 30w6d with concordant mo/di twins at 30w5d with active labor. S/p nifedipine, on magnesium, without many UC reported by pt but ongoing cervical change is present--has gone from 5 to 8cm in about 3h. Unfortunately she didn't become stable enough for transport--team was called and was at the bedside but SVE was changed and so team was sent home. [facility] and will attend the delivery if possible. Peds, nursing, OR, anesthesia aware. Plan for vaginal delivery with vertex/vertex babies. Discussed that if B comes breech I recommend to reduce risk of injury, patient consents to this. Discussed including risk of bleeding, infection, trauma to local organs, anesthesia complications, and problems with future pregnancies due to scar on the uterus. All questions answered and consent signed. Will deliver in OR with double setup, pt has received an epidural. BMZ #1 has been given, is on ampicllin for GBS unknown prophylaxis. Rh+ Rub equivocal needs vax PP. Needs Tdap and flu PP. DECLINES STERILIZATION, she is not 100% and is considering options. History - Past Medical History MRSA Hx?: No - Past Surgical History /WEIGHT RECORDER: reports: Dilation and currettage Meds/Allgy - Home Medications Home Medications: Ambulatory Orders Medication Instructions Recorded Confirmed Ibuprofen [Motrin] 800 mg PO Q8H PRN #30 tablet 12/12/15 Cyclobenzaprine [Flexeril] 10 mg PO TID PRN #20 tablet 12/26/18 - Allergies Allergies/Adverse Reactions: Allergies Allergy/AdvReac Type Severity Reaction Status Date / Time No Known Drug Allergies Allergy Verified 04/25/13 03:34 Exam - Vital Signs Vital Signs: Vital Signs x48h Temp Pulse Pulse Resp BP BP Pulse Ox 01/13/20 11:32 97.9 F 92 17 122/84 H 01/13/20 11:06 16 103/64 100 01/13/20 10:30 98.8 F 96 18 118/68 100
[2020-01-13] MEDS ORDERED: LIDOCAINE-PF 2% 10 ML AMP SUBQ ONE (12:42)
[2020-01-13] MEDS ORDERED: BUPIVACAINE 0.5% PF 10 ML VIAL ONE (12:42)
--- NOTE | 2020-01-13 12:50 | ANESTHESIA ---
Pre-Anesthesia VS, & Labs - Diagnosis Labor, 30 week twin - Procedure Epidural, Standby for OR twin delivery Vital Signs: Temp Pulse Resp BP Pulse Ox 36.6 C 92 17 122/84 H 100 01/13/20 11:32 01/13/20 11:32 01/13/20 11:32 01/13/20 11:32 01/13/20 11:06 Height: 5 ft 6 in Weight (kg): 89 kg Body Mass Index: 31.6 BMI Classification: Obese - NPO Last Fluid Intake: 09 Milk - Is Patient ?: Yes Home Medications and Allergies Active Medications Magnesium Sulfate (Magnesium Sulf 20 G/500 Ml Bag) 20 gm in 500 mls @ 50 mls/hr IV .Q10H [facility] Last Admin: 01/13/20 11:09 Dose: 2 gm/hr, 50 mls/hr Documented by: Ampicillin Sodium 2 gm/ Sodium (Chloride) 100 mls @ 100 mls/hr IV Q6HR [facility] Last Admin: 01/13/20 11:18 Dose: 100 mls/hr Documented by: Lactated Ringer's (Lr) 1,000 mls @ 75 mls/hr IV .[id number] [facility] Allergies/Adverse Reactions: Allergies Allergy/AdvReac Type Severity Reaction Status Date / Time No Known Drug Allergies Allergy Verified 04/25/13 03:34 Anes History & Medical History - Anesthetic History Anesthesia Complications: reports: No previous complications - Medical History Cardiovascular: reports: None Pulmonary: reports: None Gastrointestinal: reports: GERD (during ) Urinary: reports: None Neuro: reports: None Musculoskeletal: reports: None Endocrine/Autoimmune: reports: None Blood Disorders: reports: None Skin: reports: None Smoking Status: Former smoker (Quit 10 yrs ago) Psychosocial: reports: No issues indicated, Cannabis (occassional) History of Cancer?: No - Surgical History Gynecologic: Dilation and currettage, LEEP (Cervical surgery), Other (Ectopic ) - Obstetrical History : 8 Parity: 4 Events: positive: labor <37 weeks Complications: positive: Multiple gestation Problems: Twins Exam General: Alert, Oriented x3, Cooperative, No acute distress Dental: WNL Mouth Openin Fingerbreadth Neck Mobility: Normal Mallampati classification: II Respiratory: Lungs clear, Normal breath sounds, No respiratory distress, No accessory muscle use Cardiovascular: Regular rate, Normal S1, Normal S2, No murmurs Mental/Cognitive Status: Alert/Oriented X3, Normal for patient Plan Anesthesia Type: Epidural (Epidural placed for possible C/S. Discussed general anesthesia if unable to get patient numb enough for emergent C/S. Plan is to deliver twins in the OR.) Consent for Procedure(s) Verified and Reviewed: Yes Code Status: Attempt Resuscitation ASA classification: 2-Mild systemic disease Is this case an emergency?: Yes
[2020-01-13 13:03] LABS: BASOPHILS % (AUTO) 0.3 %; EOSINOPHILS % (AUTO) 0.3 %; HGB - HEMOGLOBIN 13.3 g/dL (12.0-16.0); LYMPHOCYTES # (AUTO) 1.5 10^3/uL (1.5-3.5); LYMPHOCYTES % (AUTO) 12.1 %; MEAN CORPUSCULAR HEMOGLOBIN 31.4 pg (27.0-31.0); MEAN CORPUSCULAR HGB CONC 35.3 g/dL (32.0-36.0); MEAN CORPUSCULAR VOLUME 89.1 fL (81.0-99.0); MONOCYTES # (AUTO) 0.3 10^3/uL (0.0-1.0); MONOCYTES % (AUTO) 2.4 %; NEUTROPHILS # (AUTO) 10.7 10^3/uL (1.5-6.6); NEUTROPHILS % (AUTO) 83.6 %; PLT - PLATELET COUNT 170 10^3/uL (130-450); RED BLOOD COUNT 4.23 10^6/uL (4.20-5.40); RED CELL DISTRIBUTION WIDTH 13.5 % (12.0-15.0); WHITE BLOOD COUNT 12.8 x10^3/uL (4.8-10.8)
[2020-01-13] MEDS ORDERED: OXYTOCIN/SODIUM CHLORIDE 500 ML IV ONE ×2 (13:30→16:56)
[2020-01-13] MEDS ORDERED: MEASLES,MUMPS & RUBELLA VACC 0.5 ML VIAL SUBQ ONE (16:27)
[2020-01-13] MEDS ORDERED: HYDROCORTISONE 1% CREAM 28 GM TUBE PR PRN (16:27)
[2020-01-13] MEDS ORDERED: TETANUS/DIPHTHERIA/PERTUSSIS 0.5 ML SYRINGE IM ONE (16:27)
[2020-01-13] MEDS ORDERED: WITCH HAZEL/GLYCERIN 1 PAD TOP PRN (16:27)
[2020-01-13] MEDS ORDERED: ONDANSETRON ODT 4 MG TABLET TL PRN (16:27)
--- NOTE | 2020-01-13 16:40 | DELIVERY NOTE ---
Delivery Note - Labor Labor: positive: Spontaneous - Infant Delivery Method Delivery Method: positive: Spontaneous vaginal delivery (twin, ) - Nuchal Cord Nuchal Cord: positive: None - Amniotic Fluid Description Amniotic Fluid Description: positive: Clear (x2) - Episiotomy Type Episiotomy Type: positive: None - Laceration Laceration: positive: Periurethral (bilateral superficial not needing repair) - Cord Cord: positive: 3 vessels - Placenta Placenta: positive: Intact, Spontaneous - Estimated Blood Loss Estimated Blood Loss (in cc): 250 - Post Delivery Events Post Delivery Events: positive: No post delivery events - Delivery Comments (Free Text/Narrative) Delivery Comments (Free Text/Narrative): TWIN VAGINAL DELIVERY Patient had a SVE in clinic of 5cm--checked due to slightly increased contraction frequency-- but did not feel like she was in labor until 9cm dilation. 30w6d mo/di twins. Cervix progressed too quickly to safely transport and so NICU pediatric teams called in for delivery. Once the 2nd team arrived, she went to the OR at 9cm. AROM clear without complications. Pushed over about 3 contractions to deliver OA over intact perineum. Baby on mom's abdomen while cord left pulsating for 30sec. Cord clamped x2 and cut and baby brought to warmer by part maker. US revealed vertex presentation of baby B, normal heart tones. Patient was advised to push to bring head down. Had 2 contractions without head descent--recheck revealed transverse presentation. Baby B was easily externally verted with just gentle abdominal pressure. She pushed with her next contraction and had SROM clear. Head was then at +1 station. Pushed effectively to deliver OA over intact perineum. Baby on mom's abdomen for delayed cord clamp but didn't have much respiratory effort and so cord clamped and cut at 15sec. Placenta delivered about 15min, intact with 3V cords, delivered spontaneously with maternal pushing. Had a brief gush of blood when the uterus was first isaias, got pitocin and metherginE. Though by the time the methergine was drawn up the bleeding had stabilized. Fundus is firm and 1cm below umbilicus. Anticipate that mom will be able to go to [facility] to see her girls in the NICU--will wait for 6h post delivery to eval for any secondary bleeding events. She was counseled that this is early and not normally done except for in these circumstances. Could develop a complication needing care that would be done in [place] rather than here. She is an experienced mom, P6, and would like to go [place].
--- NOTE | 2020-01-13 16:49 | ANESTHESIA POST OP EVALUATION ---
Anesthesia Post Eval - Post Anesthesia Eval Vitals: Last Vital Signs Temp 36.6 C 01/13/20 11:32 Pulse 92 01/13/20 11:32 Resp 17 01/13/20 11:32 BP 122/84 H 01/13/20 11:32 Pulse Ox 100 01/13/20 11:06 CV Function Including HR & BP: positive: Stable Pain Control: positive: Satisfactory Nausea & Vomiting: positive: Negative Mental Status: positive: Baseline Respiratory Status: Airway Patent Hydration Status: Satisfactory Anesthesia Complications: positive: None
[2020-01-13] MEDS ORDERED: IBUPROFEN 800 MG TABLET PO SCH (17:00)
[2020-01-13] MEDS ORDERED: OXYTOCIN/SODIUM CHLORIDE 500 ML IV SCH (17:00)
[2020-01-13] MEDS ORDERED: ACETAMINOPHEN 500 MG TABLET PO SCH (17:00)
[2020-01-13] MEDS ORDERED: FLU VACC QS2020-21(6MOS UP)/PF 60 MCG/0.5 ML SYRINGE IM ONE (17:42)
[2020-01-13 21:50] VITALS: BP 125/81
--- NOTE | 2020-01-13 22:04 | Labor Flowsheet ---
Labor Flowsheet Datetime Report Generated by CPN: 01/13/2020 22:03 Datetime: 01/13/2020 21:43 VITAL SIGNS NBP Sys/Mary/Mean (mmHg): 125 : 81 : 91 Pulse: 84 Datetime: 01/13/2020 18:53 Temperature (C): 36.9 Datetime: 01/13/2020 18:50 SpO2 (%): 100 Datetime: 01/13/2020 16:15 Stage of : Recovery Datetime: 01/13/2020 16:03 UTERINE ACTIVITY Monitor Mode: Palpation Frequency (min): 2-3 Quality: Strong Pattern: Normal: <= 5 Contractions in 10 Minutes Resting Tone (Palpate): Relaxed Comments: 150s prior to delivery. audible decel heard with good recovery to the 150s Datetime: 01/13/2020 15:51 ASSESSMENT A Monitor Mode: External US Comments: audible at 160s prior to delivery Datetime: 01/13/2020 15:45 Duration (sec): 40-60 FHR Baseline Rate : 140 ASSESSMENT B Monitor Mode: External US FHR Baseline Rate : 150 Datetime: 01/13/2020 15:10 Patient Care Comments: pt taken to OR Datetime: 01/13/2020 15:09 LaborFlag: Labor Datetime: 01/13/2020 15:00 Variability: Moderate 6-25 bpm Accelerations: 15X15 Decelerations: None Category: Category I Oxygen Method: Room Air Datetime: 01/13/2020 14:45 Variability: Moderate 6-25 bpm Accelerations: 15X15 Datetime: 01/13/2020 14:44 Respirations: 16 PAIN Pain Scale: 6 Pain Coping: Talking Through Contractions Datetime: 01/13/2020 14:30 FHR Baseline Changes: No Baseline Change FHR Baseline Changes: No Baseline Change Decelerations: None Category: Category I VAGINAL EXAM Dilatation (cm): 9.0 Effacement (%): 80 Station: 0 Exam by: [email or web address] COMMUNICATION Communication: Provider at Bedside Communication Comments: Frances Datetime: 01/13/2020 13:30 Monitor Interventions for FHR: Ultrasound Adjusted Datetime: 01/13/2020 13:01 Monitor Interventions for UA: [place] Adjusted Contraction Comments: abd wash done prior to OR Datetime: 01/13/2020 12:27 Epidural Procedure: Test Dose Anesthesia Comments: no epidural meds given Datetime: 01/13/2020 12:13 MEDICATIONS Antibiotics: Ampicillin IV 2 Gm PATIENT CARE IV/Blood Work: IV Infusing per Order Datetime: 01/13/2020 12:07 PROCEDURE TIME OUT Procedure Verify: Correct Patient Identity; Correct Side and Site are Marked; Accurate Procedure Co nsent Form; Agreement on Procedure to be Done; Correct Patient Position; Addressed Need to Administer Antibiotics or Fluids for Irrigation; Safety Precautions Based on Patient History or Medication Use ANESTHESIA Anesthesia Plans: Epidural Epidural Positioning: Sitting
[2020-01-13 23:12] LABS: TRICHOMONAS VAGINALIS DNA NEGATIVE (NEGATIVE)
--- NOTE | 2020-01-14 21:09 | DISCHARGE SUMMARY ---
Physician: Yamini Daniels MD DATE OF ADMISSION: 01/13/2020 DATE OF DISCHARGE: 01/13/2020 ADMISSION DIAGNOSES 1. Intrauterine at 30 weeks and 6 days. 2. Monochorionic diamniotic twins. 3. Advanced cervical dilation, . DISCHARGE DIAGNOSES: labor, status post vaginal delivery. OPERATIONS AND PROCEDURES: 01/13/2020, vaginal delivery of 30 weeks, 6 day vertex twins. HOSPITAL COURSE: The patient had an incidental finding in clinic of a 5 cm dilated cervix. She was sent to labor and delivery for evaluation. She received betamethasone for lung maturity and was give n a dose of nifedipine, though she was not isaias, just to give us some time for transport. Edis pite the dose of nifedipine, she continued having cervical change, although she did not have any abdo olivia pain. She remained pain free in fact until she was 9 cm dilated. At 8 cm dilated, she said sixto t she would have been at home and would have had no idea that she was in labor. At the end of her la bor, we were able to merchandise pickup/receiving associate contractions every 3-4 minutes and so I do believe that this was labor r elated and not due to any cervical incompetence. She had a normal cervical length earlier in her pre gnancy. Once progressive dilation was noted, we did more aggressive tocolysis with magnesium, which also provided neuro protection and called [employer]ights to try to get her to a NICU prior to delivery. By the time of Flights had arrived, her cervix had continued to progress and so they were called off and the [facility] teams were brought in for the babies. She received ampicillin for group B strep prophylaxis. The patient received an epidural at 8 cm in case a was needed for the second twin. She was brought to the operating room at 9 cm once both NICU teams had arrived. She underwent AROM and then delivered quickly thereafter. Her second twin was also delivered vertex and uncomplicat ed. She had a small gush of blood before the placenta came out, but then afterwards had no significa nt bleeding. She did have a dose of Methergine given because of the twins and a gush. Her twins req uired transport to [facility] due to their premature status. Because of this, mom was very e ager to go be with her girls [facility]. She was kept for 6 hours following her delivery to ensure that th ere were no secondary bleeding events. By the time of discharge, she was eating, ambulating, and uri nating without difficulties and she had no heavy bleeding. No significant pain. She was afebrile wi th normal vital signs. Her fundus is also firm and at her umbilicus. DISCHARGE DISPOSITION: Home. CONDITION: Good. FOLLOWUP: Definitely at six weeks for Mirena IUD insertion, as the patient declined tubal sterilizat ion. Otherwise, her follow up will depend on how the girls are doing in the NICU. She is welcome to follow up here at any time including for any mood problems. MEDICATIONS 1. vitamins daily. 2. Ibuprofen p.r.n. pain. TD: 01/14/2020 10:45
== END 2020-01-13 21:55 | disposition home or self-care (01) | DRG 805 ==
LOC: WFO 09:55 → FBP 09:59 → WFO 10:07 → FBP 10:08 → OBSVTOIN 11:49 → FBP 11:50
PROVIDERS: ADMIT Obstetrics & Gynecology; ATTEND Obstetrics & Gynecology
PROC: 10907ZC Drainage of Amniotic Fluid, Therapeutic from Products of Conception, Via Natural or Artificial Opening (ICD-10-PCS; 2020-01-13)
PROC: 10E0XZZ Delivery of Products of Conception, External Approach (ICD-10-PCS; principal; 2020-01-13 12:15)
DX: O30.043 Twin pregnancy, dichorionic/diamniotic, third trimester (principal); O60.14X1 Preterm labor third trimester with preterm delivery third trimester, fetus 1; Z37.2 Twins, both liveborn; O60.14X2 Preterm labor third trimester with preterm delivery third trimester, fetus 2; O32.2XX2 Maternal care for transverse and oblique lie, fetus 2; O70.0 First degree perineal laceration during delivery; Z3A.30 30 weeks gestation of pregnancy; Z79.1 Long term (current) use of non-steroidal anti-inflammatories (NSAID); Z87.891 Personal history of nicotine dependence; Z72.89 Other problems related to lifestyle; Z86.001 Personal history of in-situ neoplasm of cervix uteri
CPT/HCPCS: 36415; 81001; 85025; 86850; 86900; 86901; 87210; 87491; 87591; 87661; 87797; 90715; 96365; 96368; 96372; 96375; 99215; A9270; G0378; J2210; J3490; J7120; 87086

== ENCOUNTER 2020-06-12 19:21 | Emergency (ER) | payer MEDICAID ==
[2020-06-12] MEDS ORDERED: HYDROmorphone 2 MG/ML VIAL IM STA (20:31)
[2020-06-12] MEDS ORDERED: KETOROLAC 60 MG/2 ML VIAL IM STA (20:31)
--- NOTE | 2020-06-12 20:34 | ED Physician Documentation ---
History of Present Illness - Stated complaint Stated Complaint: BACK PX - Chief complaint Chief Complaint: Back Pain - Additonal information Additional information: 30-year-old female presents the emergency department for evaluation of acute left low back pain that radiates down her left leg and causes tingling in her toes. Had a history of similar when she was and reports it was called sciatica. She denies any recent falls or trauma. No saddle anesthesia bowel or bladder incontinence. She is taken ibuprofen and Tylenol this afternoon with mild relief of the pain. She reports that when she was walking however her leg gave out on her. Review of Systems Constitutional: reports: Reviewed and negative Eyes: reports: Reviewed and negative Ears: reports: Reviewed and negative Nose: reports: Reviewed and negative Throat: reports: Reviewed and negative Cardiac: reports: Reviewed and negative Respiratory: reports: Reviewed and negative GI: reports: Reviewed and negative : reports: Reviewed and negative Skin: reports: Reviewed and negative Musculoskeletal: reports: Back pain Neurologic: reports: Numbness (Left lower lateral leg). denies: Generalized weakness, Focal weakness Psychiatric: reports: Reviewed and negative PD PAST MEDICAL HISTORY - Past Medical History Past Medical History: Yes Cardiovascular: None Respiratory: None Neuro: None Endocrine/Autoimmune: None GI: GERD : None Musculoskeletal: Chronic back pain, Other Derm: None Other Past Medical History: sciatic pain - Past Surgical History Past Surgical History: Yes /[employer]: Dilation and currettage, LEEP (Cervical surgery), Other - Present Medications Home Medications: Ambulatory Orders Medication Instructions Recorded Confirmed Cyclobenzaprine [Flexeril] 10 mg PO BID #10 tab 06/12/20 predniSONE [Deltasone] 40 mg PO DAILY #8 tab 06/12/20 - Allergies Allergies/Adverse Reactions: Allergies Allergy/AdvReac Type Severity Reaction Status Date / Time No Known Drug Allergies Allergy Verified 06/12/20 19:28 - Social History Does the pt smoke?: No Smoking Status: Never smoker Does the pt drink ETOH?: No Does the pt have substance abuse?: No - Immunizations Immunizations are current?: Yes - POLST Patient has POLST: No PD ED PE EXPANDED - General General: Alert, In Pain, In distress - Cardiac Cardiac: Regular Rate, Regular Rhythm - Respiratory Respiratory: Clear to ausultation luis. No: Distress, Labored - Abdomen Abdomen: Normal Bowel sounds. No: Tender to palpation - Back Back: Soft tissue tenderness (Low left lumbar and buttock tenderness. Positive straight leg exam on the left. Subjective paresthesia lower lateral left leg and foot. Normal dorsi and plantarflexion of left foot. Preserved sensation medially.), Straight leg raise + L. No: Vertebral tenderness, Straight leg raise + R, CVA TTP right, CVA TTP left Results - Vitals Vitals: Vital Signs - 24 hr 06/12/20 06/12/20 19:28 19:31 Temperature 36.6 C 36.6 C Heart Rate 88 88 Respiratory 16 16 Rate Blood Pressure 112/78 112/78 O2 Saturation 99 99 Oxygen O2 Source Room air - Labs Labs: Laboratory Tests 06/12/20 20:31 Urine Color YELLOW Urine Clarity HAZY Urine pH 7.0 Ur Specific [place] 1.020 Urine Protein NEGATIVE Urine Glucose (UA) NEGATIVE Urine Ketones 15 H Urine Occult Blood NEGATIVE Urine Nitrite NEGATIVE Urine Bilirubin NEGATIVE Urine Urobilinogen 0.2 (NORMAL) Ur Leukocyte Esterase SMALL H Urine RBC 0-5 Urine WBC 4-5 Ur Squamous Epith Cells MOD Squamous H Urine Bacteria Few Ur Microscopic Review INDICATED Urine Culture Comments NOT INDICATED Urine HCG, Qual NEGATIVE PD MEDICAL DECISION MAKING - ED course Complexity details: reviewed results, re-evaluated patient, d/w patient ED course: 30-year-old female presents emergency department for evaluation of acute left low back pain with radiation to the leg. Positive straight leg exam on the left. No red flags. Exam is most consistent with sciatica. She is breast- feeding. She did get moderate pain control after Toradol and 1 mg of Dilaudid here in the emergency department. She was advised to pump and dump for the next 6 to 8 hours given the Dilaudid administration. She will be discharged home with a prescription for 4-day course of steroids to be followed by NSAID medication and a limited amount of Flexeril. Patient will follow up with PCP. Emergent return precautions discussed. Departure - Departure Disposition: 01 Home, Self Care Clinical Impression: Left-sided low back pain with left-sided sciatica Qualifiers: Chronicity: acute Qualified Code(s): M54.42 - Lumbago with sciatica, left side Condition: Stable Record reviewed to determine appropriate education?: Yes Instructions: Flexeril, ED Sciatica Prescriptions: predniSONE [Deltasone] 40 mg PO DAILY #8 tab Cyclobenzaprine [Flexeril] 10 mg PO BID #10 tab Comments: I am glad that you are feeling better. Your back pain is most consistent with sciatica which is inflammation of the sciatic nerve that runs from your low back down the leg. I would like you to take the prednisone at home for the next 4 days. This should help with inflammation. After you complete the course of prednisone then you may begin taking ibuprofen but do not take it while you are on the prednisone. I have also ordered Flexeril which is a muscle relaxer. It may make you sleepy so use it cautiously. A small amount of Flexeril is excreted in breast milk so be cautious using that. I also advised that you pump and dump your breast milk for the next 8 hours as you did receive a narcotic here in the emergency department. Please schedule follow-up with your primary doctor for reevaluation of your back pain in the next 7 to 10 days. If your pain is worsening, you lose control of your urine or stool control, you have fevers or inability to move your legs please return immediately to the ER
[2020-06-12 20:46] LABS: BILIRUBIN,URINE NEGATIVE (NEGATIVE); GLUCOSE, URINE (UA) NEGATIVE (NEGATIVE); KETONES,URINE (UA) 15 mg/dL (NEGATIVE); LEUKOCYTE ESTERASE, URINE SMALL (NEGATIVE); NITRITE,URINE NEGATIVE (NEGATIVE); OCCULT BLOOD,URINE NEGATIVE (NEGATIVE); PROTEIN,URINE NEGATIVE (NEGATIVE); UROBILINOGEN,URINE 0.2 (NORMAL) E.U./dL (NORMAL)
[2020-06-12 20:47] LABS: CLARITY,URINE HAZY (CLEAR)
[2020-06-12 20:48] LABS: HCG UR QUAL NEGATIVE
[2020-06-12 20:52] LABS: BACTERIA,URINE Few /HPF (None Seen); RBC,URINE 0-5 /HPF (0-5); SQUAMOUS EPITHELIAL CELL,UR MOD Squamous (<= Few)
[2020-06-12 21:18] VITALS: BP 113/75
== END 2020-06-12 21:17 | disposition home or self-care (01) ==
LOC: ED 19:21
DX: M54.42 Lumbago with sciatica, left side (principal)
CPT/HCPCS: 81001; 81025; 96372; 99283; 99284; J1170; 81003; 87086

== ENCOUNTER 2021-06-20 15:40 | Outpatient (CLI) | payer MEDICAID ==
--- NOTE | 2021-06-21 09:41 | Ultrasound Report ---
PROCEDURE: OB 14+ Weeks INDICATIONS: 1st trimester OUTSIDE/PRIOR DATING DATA: Last menstrual period (LMP): 03/12/2021. LMP-based estimated date of delivery (LIAT): 12/17/2021. First dating scan (date and location): 06/20/2021. Estimated date of delivery (LIAT) from first dating scan: 12/13/2021. The below data below was generated using the study generated LIAT of 12/13/2021 TECHNIQUE: Real-time scanning was performed of the fetus, with image documentation and biometric measurements. Endovaginal scanning: Not indicated COMPARISON: None. FINDINGS: General: A single living intrauterine gestation is present. Presentation: Variable Placenta: Placental position is anterior, without previa. Amniotic fluid index: 10.7 cm, normal for gestational age. heart rate: 143 beats per minute. Maternal cervical canal: Cervix is closed and measures 6.3 cm long; normal length is 2.5 cm or more. biometrics: Biparietal diameter: 2.74 cm, 14 weeks, 6 days Head circumference: 10.61 cm, 15 weeks, 0 day Abdominal circumference: 8.42 cm, 14 weeks, 5 days Femur length: 1.60 cm, 14 weeks, 5 days Estimated gestational age from initial scan: not applicable. Composite gestational age from present scan: 14 weeks, 6 days Estimated weight and percentile: Not applicable at this time Measurement variability for biometric dating: +/- 10 days from 12-20 weeks gestation, +/- 2 weeks fro m 20-30 weeks gestation, +/- 3 weeks for 30 weeks gestation or later. Left ovary is visualized and is within normal limits. Right-sided corpus luteum is seen measures 2.2 x 1.1 x 1.1 cm in size. IMPRESSION: 1. Single live intrauterine gestation with fetus in variable presentation. heart rate is 143 bp m. Estimated gestational age based on current study is 14 weeks, 6 days. Normal amount of amniotic fl uid. 2. Right-sided corpus luteal cyst as above. Reviewed by: Demian Petersen MD on 06/21/2021 9:40 AM PST Approved by: Demian Petersen MD on 06/21/2021 9:40 AM PST Station ID: [id number]
== END 2021-06-20 15:41 | disposition home or self-care (01) ==
LOC: DI 15:40
PROVIDERS: ATTEND Midwife
DX: Z36.3 Encounter for antenatal screening for malformations (principal); O34.82 Maternal care for other abnormalities of pelvic organs, second trimester; N83.11 Corpus luteum cyst of right ovary; Z3A.14 14 weeks gestation of pregnancy

== ENCOUNTER 2021-08-01 15:27 | Outpatient (CLI) | payer MEDICAID ==
--- NOTE | 2021-08-02 08:57 | Ultrasound Report ---
PROCEDURE: OB Detailed Eval INDICATIONS: ENCOUNTER FOR SCREENING OUTSIDE/PRIOR DATING DATA: Last menstrual period (LMP): March 19, 2021. LMP-based estimated date of delivery (LIAT): December 17, 2021. First dating scan (date ): June 20, 2021. Estimated date of delivery (LIAT) from first dating scan: December 13, 2021. TECHNIQUE: Real-time scanning was performed of the fetus, with image documentation and biometric measurements. COMPARISON: June 20, 2021 FINDINGS: General: A single living intrauterine gestation is present. Presentation: Vertex Placenta: Placental position is anterior, without previa. Amniotic fluid index: 12.9 cm, appropriate for gestational age. heart rate: 147 beats per minute. Maternal cervical canal: 3.1 cm long; normal length is 2.5 cm or more. biometrics: Biparietal diameter: 4.9 cm Head circumference: 18.4 cm Abdominal circumference: 16.2 cm Femur length: 3.3 cm Estimated gestational age from initial scan: 20 weeks, 6 days. Composite gestational age from present scan: 20 weeks, 3 days Estimated weight and percentile: 379 g; 42nd percentile Measurement variability in biometric dating: +/- 10 days from 12-20 weeks gestation, +/- 2 weeks from 20-30 weeks gestation, +/- 3 weeks at 30 weeks gestation or later. Anatomic survey: Neuro: Ventricles are normal at less than 10 mm. Cisterna magna is normal at 3-11 mm. Cerebellum i s normal in size and morphology. Nuchal skin fold: Normal at less than 6 mm between 14 and 20 weeks gestational age. Face: Nose and lips, facial profile are normal. Spine: No evidence for spina bifida. Heart: 4-chambered heart is present, with normal ventricular outflow tracts. Diaphragm: Diaphragm is intact. Stomach: Left-sided stomach is present. Kidneys: No hydronephrosis. Normal is less than 5 mm in 2nd trimester, less than 7 mm in 3rd trimester. Cord: 3 vessel cord has orthotopic insertion. Bladder: Normal in size. Extremities: All 4 extremities are visualized. IMPRESSION: 1.Live single intrauterine gestation as detailed above. Reviewed by: Vikas Almonte MD on 08/02/2021 8:56 AM PDT Approved by: Vikas Almonte MD on 08/02/2021 8:56 AM PDT Station ID: [id number]
== END 2021-08-01 15:28 | disposition home or self-care (01) ==
LOC: DI 15:27
PROVIDERS: ATTEND Midwife
DX: Z36.9 Encounter for antenatal screening, unspecified (principal)

== ENCOUNTER 2021-08-16 08:00 | Outpatient (CLI) | payer MEDICAID | END 2021-08-16 08:01 | disposition home or self-care (01) | LOC: LAB.N 08:00 | PROVIDERS: ATTEND Family Medicine | DX: N30.00 Acute cystitis without hematuria (principal) | CPT/HCPCS: 87086 ==

== ENCOUNTER 2021-10-30 16:11 | Inpatient (IN) | payer MEDICAID ==
[2021-10-30] MEDS ORDERED: BETAMETHASONE 30 MG/5 ML VIAL IM ONE ×2 (16:39→17:00)
[2021-10-30] MEDS ORDERED: TERBUTALINE 1 MG/ML VIAL SUBQ PRN (16:44)
[2021-10-30] MEDS ORDERED: NIFEdipine 10 MG CAPSULE PO PRN (16:44)
[2021-10-30] MEDS ORDERED: fentaNYL 100 MCG/2 ML VIAL IVP PRN (16:44)
[2021-10-30] MEDS ORDERED: SODIUM CHLORIDE FLUSH 0.9% 10 ML SYRINGE IVP PRN ×2 (16:44→19:48)
[2021-10-30] MEDS ORDERED: hydrALAZINE INJ 20 MG/ML VIAL IVP PRN ×2 (16:44)
[2021-10-30] MEDS ORDERED: LABETALOL 20 MG/4 ML SYRINGE IVP PRN ×3 (16:44)
[2021-10-30] MEDS ORDERED: miSOPROStoL 200 MCG TABLET PR PRN (16:44)
[2021-10-30] MEDS ORDERED: miSOPROStoL 200 MCG TABLET BC PRN (16:44)
[2021-10-30] MEDS ORDERED: TRANEXAMIC ACID IN NACL 1,000 MG/100 ML BAG IV PRN (16:44)
[2021-10-30] MEDS ORDERED: OXYTOCIN/SODIUM CHLORIDE 500 ML IV PRN ×2 (16:44→19:48)
[2021-10-30] MEDS ORDERED: AMPICILLIN 2 GM in SODIUM CHLORIDE 0.9% MINIBAG 100 ML IV ONE (16:44)
[2021-10-30] MEDS ORDERED: LIDOCAINE-MPF 1% 30 ML VIAL ID PRN (16:44)
[2021-10-30] MEDS ORDERED: CARBOPROST TROMETHAMINE 250 MCG/ML AMP IM PRN (16:44)
[2021-10-30] MEDS ORDERED: METHYLERGONOVINE 0.2 MG/ML VIAL IM PRN (16:44)
[2021-10-30] MEDS ORDERED: OXYTOCIN 10 UNIT/ML VIAL IM PRN (16:44)
--- NOTE | 2021-10-30 16:48 | HISTORY & PHYSICAL EXAMINATION ---
Admit History - Visit Reason Visit Reason: Contractions - : 9 Parity: [id number] Care: positive: Other (Yue Downing) Risk/History: positive: labor <37 weeks Complications This : positive: None Smoking Status: Never smoker - Mother's Labs Mother's Blood Type: positive: O Mother's RH: positive: Positive GBS: positive: Other (Unknown) - Other Maternal History Other Maternal History: HPI: Patient is a 31-year-old -0-3-6 at 33 weeks 1 day gestation presenting today with contractions. The started approximately 12 hours ago. Is been going on getting worse throughout the day. Did have a small amount of bloody show, but no vaginal bleeding. She has good movement. Denies loss of fluid. No REDD/BV or RUQP. No vaginal bleeding. Denies nausea and vomiting. Denies urinary urgency or dysuria. All other symptoms reviewed and were negative except per HPI. Course Managed by Yue Downing this . PMH History of GUSTABO-3 PSH Laparoscopic removal of ectopic LEEP OB History -0-3-6. 2 miscarriages, 1 ectopic . 4 term deliveries. Most recent 30-week Bleckley-Di twins. SH Denies tobacco, alcohol, drugs Family History Noncontributory Allergies No known drug allergies Medications vitamin Physical exam: General: Alert, oriented, no acute distress Head: Normal cephalic atraumatic Eyes: PERRLA, extraocular motions intact. Respiratory: Normal rate of respiration. No accessory muscle use, normal respiratory effort. Cardiovascular: Regular rate and rhythm Abdomen: Gravid, nontender, nondistended Extremities: Normal range of motion Neuro: Oriented x3. Normal movements Psych: Appropriate mood and affect. Normal judgment and insight SVE: Bulging membranes to introitus, nonpalpable cervix. FHT: 135 beats minute baseline, moderate variability, accelerations present, no decelerations. Category 1. [place]: 3 to 4 minutes Plan 31-year-old -0-3-6 at 33 weeks 1 day gestation by early ultrasound. 1. labor -Admit to L&D, admit labs. Declines epidural. -Betamethasone 12 mg, although unknown duration before delivery and may not get full benefit. -Anticipate 2. 33 weeks gestation 3. GBS unknown -We will start ampicillin for GBS sepsis prophylaxis 4. Grand multiparity -Anticipate possible hemorrhage, uterotonic's in room. 5. History of labor -Spontaneous labor with mono Di twins at 30 weeks. Meds/Allgy - Home Medications Home Medications: Ambulatory Orders Medication Instructions Recorded Confirmed Cyclobenzaprine [Flexeril] 10 mg PO BID #10 tab 06/12/20 predniSONE [Deltasone] 40 mg PO DAILY #8 tab 06/12/20 - Allergies Allergies/Adverse Reactions: Allergies Allergy/AdvReac Type Severity Reaction Status Date / Time No Known Drug Allergies Allergy Verified 06/12/20 19:28 Physical - Abdominal Exam Vital Signs: Temp Pulse Resp BP Pulse Ox 97.7 F 120 H 18 120/79 10/30/21 16:18 10/30/21 16:18 10/30/21 16:18 10/30/21 16:18
[2021-10-30] MEDS ORDERED: LACTATED RINGERS 1,000 ML IV ONE ×2 (17:00→20:00)
[2021-10-30] MEDS ORDERED: SODIUM CHLORIDE FLUSH 0.9% 10 ML SYRINGE IVP SCH (17:00)
[2021-10-30] MEDS ORDERED: AMPICILLIN 2 GM VIAL IV ONE (17:00)
[2021-10-30] MEDS ORDERED: LACTATED RINGERS 1,000 ML ONE ×2 (17:00→17:53)
[2021-10-30 17:18] LABS: BASOPHILS % (AUTO) 0.1 %; EOSINOPHILS # (AUTO) 0.1 10^3/uL (0.0-0.7); EOSINOPHILS % (AUTO) 0.6 %; HCT - HEMATOCRIT 38.7 % (37.0-47.0); HGB - HEMOGLOBIN 13.7 g/dL (12.0-16.0); LYMPHOCYTES # (AUTO) 1.9 10^3/uL (1.5-3.5); LYMPHOCYTES % (AUTO) 23.3 %; MEAN CORPUSCULAR HEMOGLOBIN 31.1 pg (27.0-31.0); MEAN CORPUSCULAR HGB CONC 35.4 g/dL (32.0-36.0); MEAN CORPUSCULAR VOLUME 87.8 fL (81.0-99.0); MEAN PLATELET VOLUME 9.1 fL (7.9-10.8); MONOCYTES # (AUTO) 0.5 10^3/uL (0.0-1.0); MONOCYTES % (AUTO) 6.4 %; NEUTROPHILS # (AUTO) 5.5 10^3/uL (1.5-6.6); PLT - PLATELET COUNT 184 10^3/uL (130-450); RED BLOOD COUNT 4.41 10^6/uL (4.20-5.40); RED CELL DISTRIBUTION WIDTH 13.2 % (12.0-15.0); WHITE BLOOD COUNT 7.9 x10^3/uL (4.8-10.8)
[2021-10-30] MEDS ORDERED: LIDOCAINE 1% 50 ML MDV ID PRN (17:19)
[2021-10-30 17:30] LABS: ALBUMIN 3.3 g/dL (3.2-5.5); ALBUMIN/GLOBULIN RATIO 0.9 (1.0-2.2); BILIRUBIN,TOTAL 0.8 mg/dL (0.2-1.0); CALCIUM 9.3 mg/dL (8.5-10.3); CREATININE 0.5 mg/dL (0.4-1.0); POTASSIUM 3.3 mmol/L (3.5-5.0); TOTAL PROTEIN 6.9 g/dL (6.7-8.2)
[2021-10-30] MEDS ORDERED: ceFAZolin 1 GM VIAL ONE (18:08)
[2021-10-30] MEDS ORDERED: fentaNYL 100 MCG/2 ML VIAL ONE (18:18)
[2021-10-30] MEDS ORDERED: ROCURONIUM 50 MG/5 ML VIAL ONE (18:32)
[2021-10-30] MEDS ORDERED: METHYLERGONOVINE 0.2 MG/ML VIAL ONE ×3 (18:36→19:26)
[2021-10-30] MEDS ORDERED: CARBOPROST TROMETHAMINE 250 MCG/ML AMP IM ONE ×5 (18:36→20:27)
[2021-10-30] MEDS ORDERED: miSOPROStoL 200 MCG TABLET ONE ×3 (18:36→18:40)
[2021-10-30] MEDS ORDERED: ONDANSETRON 4 MG/2 ML VIAL ONE (18:47)
[2021-10-30] MEDS ORDERED: DEXAMETHASONE 4 MG/ML VIAL ONE (18:47)
[2021-10-30] MEDS ORDERED: PROPOFOL 200 MG/20 ML VIAL IVP ONE (18:49)
[2021-10-30 18:53] LABS: BACTERIAL VAGINOSIS DNA NEGATIVE (NEGATIVE); CANDIDA GLABRATA DNA NEGATIVE (NEGATIVE); CANDIDA GROUP DNA NEGATIVE (NEGATIVE); CANDIDA KRUSEI DNA NEGATIVE (NEGATIVE); TRICHOMONAS VAGINALIS DNA NEGATIVE (NEGATIVE)
[2021-10-30] MEDS ORDERED: ROPIVACAINE 0.5% PF 20 ML AMPULE ONE (18:59)
--- NOTE | 2021-10-30 19:06 | ANESTHESIA ---
Pre-Anesthesia VS, & Labs - Diagnosis prolapsed cord - Procedure primary c/s Vital Signs: Temp Pulse Resp BP Pulse Ox 36.5 C 120 H 18 120/79 10/30/21 16:18 10/30/21 16:18 10/30/21 16:18 10/30/21 16:18 Height: 5 ft 7 in Weight (kg): 75.296 kg Body Mass Index: 25.9 BMI Classification: Overweight - NPO Other (last ate at 3pm) - Is Patient ?: Yes - Lab Results Current Lab Results: Laboratory Tests 10/30/21 16:53: Sodium 136, Potassium 3.3 L, Chloride 105, Carbon Dioxide 20 L, Anion Gap 11.0, BUN 6, Creatinine 0.5, Estimated GFR (MDRD) 143, Glucose 93, Calcium 9.3, Total Bilirubin 0.8, AST 21, ALT 11, Alkaline Phosphatase 91, Total Protein 6.9, Albumin 3.3, Globulin 3.6, Albumin/Globulin Ratio 0.9 L 10/30/21 16:53: WBC 7.9, RBC 4.41, Hgb 13.7, Hct 38.7, MCV 87.8, MCH 31.1 H, MCHC 35.4, RDW 13.2, Plt Count 184, MPV 9.1, Neut # (Auto) 5.5, Lymph # (Auto) 1.9, [place] # (Auto) 0.5, Eos # (Auto) 0.1, Baso # (Auto) 0.0, Absolute Nucleated RBC 0.00, Nucleated RBC % 0.0 10/30/21 16:53: Blood Type O POSITIVE, Antibody Screen NEGATIVE Lab results reviewed: Yes Fish Bones: 10/30/21 16:53 10/30/21 16:53 Home Medications and Allergies Active Medications Carboprost Tromethamine (Carboprost Tromethamine 250 Mcg/Ml Amp) 250 mcg IM .ONCE PRN PRN Reason: Hemorrhage Fentanyl (Fentanyl 100 Mcg/2 Ml Vial) 50 mcg IVP Q1H PRN PRN Reason: Severe Pain (score 7-10) Hydralazine HCl (Hydralazine Inj 20 Mg/Ml Vial) 5 - 10 mg IVP Q20M PRN; Protoco l PRN Reason: SBP> or= 160 OR DBP> or= 110 Hydralazine HCl (Hydralazine Inj 20 Mg/Ml Vial) 10 mg IVP .ONCE PRN; Protocol PRN Reason: SBP> or= 160 OR DBP> or= 110 Oxytocin/Sodium Chloride (Pitocin/Sodium Chloride) 500 mls @ 999 mls/hr IV PRN PRN; Protocol PRN Reason: POST- HEMORR PREVENTION Tranexamic Acid (Tranexamic 1,000 Mg/100ml-Nacl) 1,000 mg in 100 mls @ 600 mls/hr IV Q30M PRN PRN Reason: EBL >1200mL and within 3hr Ampicillin Sodium 1 gm/ Sodium (Chloride) 100 mls @ 200 mls/hr IV Q4H CAESAR Labetalol HCl (Labetalol 20 Mg/4 Ml Syringe) 20 - 80 mg IVP Q10M PRN; Protocol PRN Reason: SBP> or= 160 OR DBP> or= 110 Labetalol HCl (Labetalol 20 Mg/4 Ml Syringe) 20 mg IVP .ONCE PRN; Protocol PRN Reason: SBP> or= 160 OR DBP> or= 110 Labetalol HCl (Labetalol 20 Mg/4 Ml Syringe) 20 - 40 mg IVP Q10M PRN; Protocol PRN Reason: SBP> or= 160 OR DBP> or= 110 Lidocaine HCl (Lidocaine 1% 50 Ml Mdv) 30 ml ID .ONCE PRN PRN Reason: PERINEAL REPAIR Methylergonovine Maleate (Methylergonovine 0.2 Mg/Ml Vial) 0.2 mg IM .ONCE PRN PRN Reason: Hemorrhage Misoprostol (Misoprostol 200 Mcg Tablet) 600 mcg BC .ONCE PRN PRN Reason: Hemorrhage Misoprostol (Misoprostol 200 Mcg Tablet) 800 mcg VA .ONCE PRN PRN Reason: Hemorrhage Nifedipine (Nifedipine 10 Mg Capsule) 10 - 20 mg PO Q20M PRN; Protocol PRN Reason: SBP> or= 160 OR DBP> or= 110 Oxytocin (Oxytocin 10 Unit/Ml Vial) 10 unit IM .ONCE PRN PRN Reason: Step One if no IV access. Sodium Chloride (Sodium Chloride Flush 0.9% 10 Ml Syringe) 10 ml IVP PRN PRN PRN Reason: NEEDED PER PROVIDER ORDERS Sodium Chloride (Sodium Chloride Flush 0.9% 10 Ml Syringe) 10 ml IVP Q8H CAESAR Terbutaline Sulfate (Terbutaline 1 Mg/Ml Vial) 0.25 mg SUBQ .ONCE PRN PRN Reason: Tachystole Allergies/Adverse Reactions: Allergies Allergy/AdvReac Type Severity Reaction Status Date / Time No Known Drug Allergies Allergy Verified 06/12/20 19:28 Anes History & Medical History - Anesthetic History Anesthesia Complications: reports: No previous complications - Medical History Cardiovascular: reports: None Pulmonary: reports: None Gastrointestinal: reports: GERD Urinary: reports: None Neuro: reports: None Musculoskeletal: reports: Chronic back pain, Other Endocrine/Autoimmune: reports: None Blood Disorders: reports: None Skin: reports: None Smoking Status: Never smoker Psychosocial: reports: No issues indicated History of Cancer?: No - Surgical History Gynecologic: reports: Dilation and currettage, LEEP (Cervical surgery), Other - Obstetrical History Events: reports: labor <37 weeks Exam General: Alert, Oriented x3, Cooperative, No acute distress Dental: Poor dentition Mouth Openin Fingerbreadth Neck Mobility: Normal Mallampati classification: II Thyromental Distance: 4-6 cm Mental/Cognitive Status: Alert/Oriented X3, Normal for patient Plan Anesthesia Type: General (Patient to OR for emergency c/s for cord prolapse. History obtained and patient Consented in the OR), Transverse Abdominis Plane (TAP) Block (bilateral) Regional Block: Per Surgeon's request for Post Op pain control Consent for Procedure(s) Verified and Reviewed: Yes Code Status: Attempt Resuscitation ASA classification: 2-Mild systemic disease Is this case an emergency?: Yes
[2021-10-30] MEDS ORDERED: HYDROmorphone 1 MG/ML CARPUJECT ONE (19:20)
[2021-10-30] MEDS ORDERED: ONDANSETRON ODT 4 MG TABLET TL PRN (19:48)
--- NOTE | 2021-10-30 19:48 | OPERATIVE REPORT ---
Operative Report - General Admit Date: 10/30/21 Planned Procedure: Primary low transverse section Pre-Op Diagnosis: Cord prolapse, 33 weeks gestation, labor, PROM Procedure Performed: Primary classical section Post Op Diagnosis: Cord prolapse, 33 weeks gestation, labor, PROM - Procedure Note Primary Surgeon: Martinez Blount MD Secondary Surgeon: HECTOR Aguilar Anesthesia Provider: Jam Samuel CRNA Anesthesia Technique: General ET tube Pathology: None Estimated Blood Loss (mL): 600 Urine Output (mL): 400 Complications: None - Other Other Information/Narrative: History: Patient was a 31-year-old -0-3-6 at 33 weeks 1 day gestation by early ultrasound who presented today with contractions that started around 12 hours previous. She was checked and found to have bulging membranes to the introitus. Bedside ultrasound confirmed cephalic presentation. She was moved to a labor room. She had spontaneous rupture of membranes with a copious amount of clear fluid followed by prolonged deceleration. The fetus did recover initially, but she then began having deep decelerations with each contraction and when checked she was found to be 5 cm with thick cervix and a cord bulging through the cervix. section was recommended. Risks, benefits and alternatives were discussed including but not limited to infection, bleeding that may require blood products or hysterectomy for life saving measures, injury to surrounding organs including but not limited to bowel, bladder, ureters, tubes and ovaries and/or the baby. Should injury occur it could require longer/additional surgery to repair. The patient stated understanding and desired to proceed. All questions were answered posed by patient. She gave verbal consent for an urgent section. As the surgeon, I kept a vaginal hand supporting the presenting part until ready for draping. Procedure: In the OR, two grams of cefazolin IV was administered. heart tones were in the 140s. She was then prepared and draped in the usual sterile fashion in the dorsal supine position with a leftward tilt displacing the uterus. Rivera was draining to gravity. SCDs were on bilateral lower extremities. During the rivera placement, the surgical site may have been contaminated, so betadine prep was used to prep the surgical field. A pfannenstiel skin incision was then made with the scalpel and carried through to the underlying layer of fascia. The fascia was incised. The rectus muscle was dissected off. The rectus muscles were in the midline. The peritoneum identified, grasped with the pick-ups and entered bluntly. The peritoneal incision was then extended superiorly and inferiorly with good visualization of the bladder. The bladder blade was inserted. The lower uterine segment was identified and incised in a transverse fashion with the scalpel. The incision was extended laterally, but the fetus was in tr ansverse position, so the incision was extended vertically. The bladder blade was removed. The infants head delivered atraumatically. The anterior shoulders were delivered followed by the posterior shoulders then the remainder of the body. The cord was clamped twice and cut, and the was handed to the pediatric team. APGARS of 2/6/7. Cord blood gases were not obtained. The placenta was removed with gentle traction. Oxytocin was added to IVF and allowed to run freely. The uterus was exteriorized and cleared of all clots and debris. The uterine incision was inspected and found to be without any extensions and was repaired with 0 Vicryl in a running, locked fashion. A second layer of 0 Vicryl was used to reapproximate the vertical incision. A third baseball stitch was used to close t he serosa to attempt to prevent adhesions. Upon inspection, the repaired hysterotomy was found to be hemostatic. The uterus was firm and returned to the abdomen. The gutters were cleared of all clots and debris. The muscles were reapproximated with 2-0 Vicryl. The fascia was reapproximated with 0 Vicryl in a running fashion. The subcutaneous tissue was closed with 2-0 Vicryl. The skin was closed in a subcuticular fashion with 4-0 Monocryl. The patient tolerated the procedure well. As this was an urgent procedure, abdominal x ray was performed to ensure no instruments were left in the abdomen. The patient was taken to the recovery room in stable condition. I appreciate the assistance of HECTOR Aguilar during this procedure, and her assistance in retraction, visualization, dissection, and overall assistance during the case were instrumental to the patient's wellbeing.
[2021-10-30] MEDS ORDERED: IBUPROFEN 600 MG TABLET PO SCH (20:00)
--- NOTE | 2021-10-30 20:04 | XRAY Report ---
PROCEDURE: Abdomen 1 View X-Ray INDICATIONS: EMERGENCY TO VERIFY CORRECT COUNT TECHNIQUE: One view of the abdomen acquired. COMPARISON: None FINDINGS: Surgical changes and devices: None. Bowel: Bowel gas pattern is normal. Lower pelvis is not seen on the examination. Soft tissues: No suspicious abdominal calcifications. Visualized solid organ contours appear normal in size. Bones: No suspicious bony lesions. IMPRESSION: No acute process. No evidence of retained surgical sponge as visualized. Lower pelvis is not seen on the examination. Reviewed by: Sukhwinder Angel MD on 10/30/2021 8:03 PM PDT Approved by: Sukhwinder Angel MD on 10/30/2021 8:03 PM PDT Station ID: [id number]
[2021-10-30] MEDS ORDERED: MORPHINE 2 MG/ML CARPUJECT IVP PRN (20:07)
[2021-10-30] MEDS ORDERED: ATROPINE ABBOJECT 1 MG/10 ML SYRINGE IVP PRN (20:07)
[2021-10-30] MEDS ORDERED: NALOXONE 0.4 MG/ML VIAL IVP PRN (20:07)
[2021-10-30] MEDS ORDERED: ONDANSETRON 4 MG/2 ML VIAL IVP PRN (20:07)
[2021-10-30] MEDS: fentaNYL 100 MCG/2 ML VIAL IVP PRN ×3 (20:11→20:24)
[2021-10-30] MEDS ORDERED: KETOROLAC 15 MG/ML VIAL ONE (20:13)
[2021-10-30] MEDS ORDERED: SUCCINYLCHOLINE 200 MG/10 ML VIAL ONE (20:28)
[2021-10-30] MEDS ORDERED: LACTATED RINGERS 1,000 ML IV SCH (21:00)
[2021-10-30] MEDS: AMPICILLIN 1 GM in SODIUM CHLORIDE 0.9% MINIBAG 100 ML IV SCH (22:06)
[2021-10-30] MEDS: HYDROmorphone 0.5 MG/0.5 ML SYRINGE IVP PRN ×2 (22:23→22:44)
[2021-10-30] MEDS: oxyCODONE 5 MG TABLET PO PRN (22:56)
[2021-10-30 23:46] LABS: CHLAMYDIA TRACHOMATIS DNA NEGATIVE (NEGATIVE); NEISSERIA GONORRHOEAE DNA NEGATIVE (NEGATIVE)
[2021-10-31] MEDS: KETOROLAC 30 MG/ML VIAL IVP SCH ×3 (02:04→13:50)
[2021-10-31] MEDS: AMPICILLIN 1 GM in SODIUM CHLORIDE 0.9% MINIBAG 100 ML IV SCH ×4 (02:07→14:27)
[2021-10-31] MEDS: LACTATED RINGERS 1,000 ML IV SCH ×2 (02:17→10:47)
[2021-10-31] MEDS: ACETAMINOPHEN 500 MG TABLET PO SCH ×4 (02:27→18:07)
[2021-10-31] MEDS: oxyCODONE 5 MG TABLET PO PRN ×6 (02:53→23:03)
[2021-10-31 05:22] LABS: BASOPHILS % (AUTO) 0.1 %; HCT - HEMATOCRIT 28.6 % (37.0-47.0); HGB - HEMOGLOBIN 9.8 g/dL (12.0-16.0); LYMPHOCYTES # (AUTO) 1.3 10^3/uL (1.5-3.5); LYMPHOCYTES % (AUTO) 9.7 %; MEAN CORPUSCULAR HEMOGLOBIN 30.7 pg (27.0-31.0); MEAN CORPUSCULAR HGB CONC 34.3 g/dL (32.0-36.0); MEAN CORPUSCULAR VOLUME 89.7 fL (81.0-99.0); MEAN PLATELET VOLUME 9.2 fL (7.9-10.8); MONOCYTES # (AUTO) 0.9 10^3/uL (0.0-1.0); MONOCYTES % (AUTO) 6.6 %; NEUTROPHILS # (AUTO) 11.2 10^3/uL (1.5-6.6); NEUTROPHILS % (AUTO) 83.2 %; PLT - PLATELET COUNT 180 10^3/uL (130-450); RED BLOOD COUNT 3.19 10^6/uL (4.20-5.40); RED CELL DISTRIBUTION WIDTH 13.2 % (12.0-15.0); WHITE BLOOD COUNT 13.5 x10^3/uL (4.8-10.8)
[2021-10-31] MEDS: SIMETHICONE CHEW 80 MG TABLET PO PRN ×3 (07:35→18:08)
[2021-10-31] MEDS: DOCUSATE SODIUM 100 MG CAPSULE PO SCH ×3 (07:35→21:32)
[2021-10-31] MEDS: SODIUM CHLORIDE FLUSH 0.9% 10 ML SYRINGE IVP SCH ×2 (07:35→13:50)
--- NOTE | 2021-10-31 08:37 | PROVIDER PROGRESS NOTE ---
Subjective - Prog Note Date Prog Note Date: 10/31/21 Prog Note Time: 08:57 - Subjective Subjective: Subjective Patient reports she is doing well. Lochia appropriate. Denies heavy bleeding. Ambulating. Pelvic and abdominal pain Is controlled, but intermittently severe spikes. Most recent Toradol did help greatly. Tolerating oral intake. Diet: Regular. Voiding without difficulty. Passing flatus. Denies BM. Baby transferred to [place]. Denies feeling lightheaded, dizzy or excessively fatigued. Objective General: Alert, oriented, no apparent distress. Cardiovascular: Regular rate. Regular rhythm. Lungs: No increased work of breathing. Abdomen: Uterus firm. Below umbilicus. No guarding or rebound. Assessment and Plan day 1. -Routine care -Anticipate discharge tomorrow Objective - Vital Signs/Intake & Output Vital Signs: Vital Signs x48h Temp Pulse Resp BP Pulse Ox 10/31/21 07:52 97.5 F L 68 16 107/56 L 99 10/31/21 04:15 97.7 F 59 L 13 99/51 L 98 Intake & Output: Intake & Output 10/28/21 10/29/21 10/30/21 10/31/21 23:59 23:59 23:59 23:59 Intake Total 560 1080 Output Total 90 1290 Balance 470 -210 - Lab Results Fish Bones: 10/31/21 05:08 10/30/21 16:53 Other Labs: Lab Results x24hrs 10/31/21 10/30/21 10/30/21 Range/Units 05:08 16:53 16:53 WBC 13.5 H 7.9 (4.8-10.8) x10^3/uL RBC 3.19 L 4.41 (4.20-5.40) 10^6/uL Hgb 9.8 L 13.7 (12.0-16.0) g/dL Hct 28.6 L 38.7 (37.0-47.0) % MCV 89.7 87.8 (81.0-99.0) fL MCH 30.7 31.1 H (27.0-31.0) pg MCHC 34.3 35.4 (32.0-36.0) g/dL RDW 13.2 13.2 (12.0-15.0) % Plt Count 180 184 (130-450) 10^3/uL MPV 9.2 9.1 (7.9-10.8) fL Neut # (Auto) 11.2 H 5.5 (1.5-6.6) 10^3/uL Lymph # (Auto) 1.3 L 1.9 (1.5-3.5) 10^3/uL Montague # (Auto) 0.9 0.5 (0.0-1.0) 10^3/uL Eos # (Auto) 0.0 0.1 (0.0-0.7) 10^3/uL Baso # (Auto) 0.0 0.0 (0.0-0.1) 10^3/uL Absolute Nucleated RBC 0.00 0.00 x10^3/uL Nucleated RBC % 0.0 0.0 /100WBC Sodium 136 (135-145) mmol/L Potassium 3.3 L (3.5-5.0) mmol/L Chloride 105 (101-111) mmol/L Carbon Dioxide 20 L (21-32) mmol/L Anion Gap 11.0 (6-13) BUN 6 (6-20) mg/dL Creatinine 0.5 (0.4-1.0) mg/dL Estimated GFR (MDRD) 143 (>89) Glucose 93 (70-100) mg/dL Calcium 9.3 (8.5-10.3) mg/dL Total Bilirubin 0.8 (0.2-1.0) mg/dL AST 21 (10-42) IU/L ALT 11 (10-60) IU/L Alkaline Phosphatase 91 (42-121) IU/L Total Protein 6.9 (6.7-8.2) g/dL Albumin 3.3 (3.2-5.5) g/dL Globulin 3.6 (2.1-4.2) g/dL Albumin/Globulin Ratio 0.9 L (1.0-2.2) C. glabrata (PCR) (NEGATIVE) C. krusei (PCR) (NEGATIVE) Sommer species DNA (NEGATIVE) Chlam trachomat DNA PCR (NEGATIVE) N.gonorrhoeae DNA (PCR) (NEGATIVE) T. vaginalis (PCR) (NEGATIVE) Bact Vaginosis (PCR) (NEGATIVE) Blood Type Antibody Screen 07/10/30/21 10/30/21 Range/Units 16:53 16:45 16:45 WBC (4.8-10.8) x10^3/uL RBC (4.20-5.40) 10^6/uL Hgb (12.0-16.0) g/dL Hct (37.0-47.0) % MCV (81.0-99.0) fL MCH (27.0-31.0) pg MCHC (32.0-36.0) g/dL RDW (12.0-15.0) % Plt Count (130-450) 10^3/uL MPV (7.9-10.8) fL Neut # (Auto) (1.5-6.6) 10^3/uL Lymph # (Auto) (1.5-3.5) 10^3/uL Montague # (Auto) (0.0-1.0) 10^3/uL Eos # (Auto) (0.0-0.7) 10^3/uL Baso # (Auto) (0.0-0.1) 10^3/uL Absolute Nucleated RBC x10^3/uL Nucleated RBC % /100WBC Sodium (135-145) mmol/L Potassium (3.5-5.0) mmol/L Chloride (101-111) mmol/L Carbon Dioxide (21-32) mmol/L Anion Gap (6-13) BUN (6-20) mg/dL Creatinine (0.4-1.0) mg/dL Estimated GFR (MDRD) (>89) Glucose (70-100) mg/dL Calcium (8.5-10.3) mg/dL Total Bilirubin (0.2-1.0) mg/dL AST (10-42) IU/L ALT (10-60) IU/L Alkaline Phosphatase (42-121) IU/L Total Protein (6.7-8.2) g/dL Albumin (3.2-5.5) g/dL Globulin (2.1-4.2) g/dL Albumin/Globulin Ratio (1.0-2.2) C. glabrata (PCR) NEGATIVE (NEGATIVE) C. krusei (PCR) NEGATIVE (NEGATIVE) Sommer species DNA NEGATIVE (NEGATIVE) Chlam trachomat DNA PCR NEGATIVE (NEGATIVE) N.gonorrhoeae DNA (PCR) NEGATIVE (NEGATIVE) T. vaginalis (PCR) NEGATIVE NEGATIVE (NEGATIVE) Bact Vaginosis (PCR) NEGATIVE (NEGATIVE) Blood Type O POSITIVE Antibody Screen NEGATIVE
[2021-10-31] MEDS ORDERED: IBUPROFEN 600 MG TABLET PO SCH (14:00)
--- NOTE | 2021-10-31 20:38 | ANESTHESIA POST OP EVALUATION ---
Anesthesia Post Eval - Post Anesthesia Eval Vitals: Last Vital Signs Temp 36.4 C L 10/31/21 17:00 Pulse 61 10/31/21 17:00 Resp 18 10/31/21 17:00 BP 107/65 10/31/21 17:00 Pulse Ox 100 10/31/21 17:00 CV Function Including HR & BP: Stable Pain Control: Satisfactory Nausea & Vomiting: Negative Mental Status: Baseline Respiratory Status: Airway Patent Hydration Status: Satisfactory Anesthesia Complications: None
[2021-10-31] MEDS: IBUPROFEN 800 MG TABLET PO SCH (21:31)
[2021-11-01] MEDS: ACETAMINOPHEN 500 MG TABLET PO SCH (03:22)
[2021-11-01] MEDS: IBUPROFEN 800 MG TABLET PO SCH ×2 (03:23→09:11)
[2021-11-01] MEDS: oxyCODONE 5 MG TABLET PO PRN ×2 (03:23→07:30)
--- NOTE | 2021-11-01 07:22 | DISCHARGE SUMMARY ---
Discharge Summary Admit Date: 10/30/21 Discharge Date: 11/01/21 Discharging Provider: Martinez Blount MD Code Status: Attempt Resuscitation Condition at Discharge: Good Discharge Disposition: 01 Home, Self Care - DIAGNOSES Admission Diagnoses: labor 33 weeks gestation Discharge Diagnoses with Status of Each Condition: labor 33 weeks gestation Cord prolapse Status post primary low-transverse section. - HPI History of Present Illness: Subjective Patient reports she is doing well. Lochia appropriate. Denies heavy bleeding. Ambulating. Pelvic and abdominal pain well-controlled. Tolerating oral intake. Diet: Regular. Voiding without difficulty. Passing flatus. Denies BM. Baby transferred to NICU Pumping Denies feeling lightheaded, dizzy or excessively fatigued. Objective General: Alert, oriented, no apparent distress. Cardiovascular: Regular rate. Regular rhythm. Lungs: No increased work of breathing. Abdomen: Uterus firm. Below umbilicus. No guarding or rebound. Incision: Clean, dry, and intact. - HOSPITAL COURSE Hospital Course: Patient is a 31-year-old -01-3-7 status post primary low-transverse section. She presented at 33 weeks gestation after isaias all day. Bulging membranes were felt at the introitus. She was admitted for labor. She had spontaneous rupture of membranes and subsequently had a cord prolapse. She was taken for urgent section under general anesthesia. course was unremarkable. As her had to be transferred to the NICU, she desired to be discharged on day 2 to go visit her . - ALLERGIES Allergies/Adverse Reactions: Allergies Allergy/AdvReac Type Severity Reaction Status Date / Time No Known Drug Allergies Allergy Verified 06/12/20 19:28 - MEDICATIONS Home Medications: Ambulatory Orders Medication Instructions Recorded Confirmed Cyclobenzaprine [Flexeril] 10 mg PO BID #10 tab 06/12/20 predniSONE [Deltasone] 40 mg PO DAILY #8 tab 06/12/20 Acetaminophen [Acetaminophen Extra 1,000 mg PO Q8H PRN #60 tablet 11/01/21 Strength] Docusate Sodium 100Mg Capsule 100 - 200 mg PO BID PRN #60 cap 11/01/21 [Colace 100Mg Capsule] Ibuprofen [Motrin] 600 mg PO Q6H PRN #30 tab 11/01/21 oxyCODONE [Roxicodone] 2.5 - 5 mg PO Q4H PRN #24 tablet 11/01/21 - LABS Result Diagrams: 10/31/21 05:08 10/30/21 16:53 - FOLLOW UP Follow Up: With Martinez Blount at [facility] in 1 week. - TIME SPENT Time Spent in Discharge (Minutes): 20
--- NOTE | 2021-11-01 07:22 | Discharge Plan ---
Discharge Plan Problem Reviewed?: Yes Disposition: Home, Self Care Condition: Good Prescriptions: Acetaminophen [Acetaminophen Extra Strength] 1,000 mg PO Q8H PRN #60 tablet PRN Reason: Pain Docusate Sodium 100Mg Capsule [Colace 100Mg Capsule] 100 - 200 mg PO BID PRN #60 cap PRN Reason: Constipation Ibuprofen [Motrin] 600 mg PO Q6H PRN #30 tab PRN Reason: Pain oxyCODONE [Roxicodone] 2.5 - 5 mg PO Q4H PRN #24 tablet PRN Reason: Severe Pain Diet: Regular Activity Restrictions: Additional Comments Shower Restrictions: No Driving Restrictions: Yes (While taking opioids and until pain subsides in approximately 2 weeks) Instruction Topics: C Section Dc No Smoking: If you smoke, Please STOP! Call for help. Follow-up with: Martinez Blount MD [Provider Admit Priv/Credential] -
[2021-11-01 07:33] VITALS: BP 94/52
[2021-11-01] MEDS: DOCUSATE SODIUM 100 MG CAPSULE PO SCH (09:11)
[2021-11-01] MEDS: SIMETHICONE CHEW 80 MG TABLET PO PRN (09:11)
--- NOTE | 2021-11-01 09:59 | Labor Flowsheet ---
Labor Flowsheet Datetime Report Generated by CPN: 11/01/2021 09:59 Datetime: 10/30/2021 21:14 VAGINAL EXAM Membranes Ruptured Date/Time: 10/30/2021 17:29 Membranes Rupture Method: Spontaneous Amniotic Fluid Color: Clear Amniotic Fluid Amount: Large Datetime: 10/30/2021 17:57 PATIENT CARE Patient Position/Activity: left for OR, Datetime: 10/30/2021 17:55 LaborFlag: Labor Datetime: 10/30/2021 17:51 Vaginal Exam Comments: stat c/s called for prolapse cord, by Dr. Blount Datetime: 10/30/2021 17:42 VITAL SIGNS NBP Sys/Mary/Mean (mmHg): 106 : 63 : 74 Datetime: 10/30/2021 17:37 Stage of : Labor UTERINE ACTIVITY Monitor Mode: External Frequency (min): 3 Quality: Strong Duration (sec): 60 Pattern: Normal: <= 5 Contractions in 10 Minutes Resting Tone (Palpate): Relaxed Contraction Comments: no longer pushing after SROM, pt cervix is about 5cm now without the pressure of the BOW. ASSESSMENT A Monitor Mode: External US FHR Baseline Rate : 150 FHR Baseline Changes: No Baseline Change Variability: Moderate 6-25 bpm Accelerations: 15X15 Decelerations: Late; Variable Category: Category II MEDICATIONS Medication Comments: 500ml LR bolus per Dr. Jose Alejandro Datetime: 10/30/2021 17:29 Patient Care Comments: SROM- clear Datetime: 10/30/2021 17:14 COMMUNICATION Communication Comments: Dr. Jerome here
== END 2021-11-01 09:30 | disposition home or self-care (01) | DRG 788 ==
LOC: WFO 16:11 → FBP 16:13 → WFO 16:43 → FBP 16:44
PROVIDERS: ADMIT Obstetrics & Gynecology; ATTEND Obstetrics & Gynecology
PROC: 10D00Z1 Extraction of Products of Conception, Low, Open Approach (ICD-10-PCS; principal; 2021-10-30 18:00)
DX: O60.14X0 Preterm labor third trimester with preterm delivery third trimester, not applicable or unspecified (principal); Z3A.33 33 weeks gestation of pregnancy; Z37.0 Single live birth; O69.0XX0 Labor and delivery complicated by prolapse of cord, not applicable or unspecified; O76 Abnormality in fetal heart rate and rhythm complicating labor and delivery
CPT/HCPCS: 36415; 74018; 80053; 81514; 85025; 86850; 86900; 86901; 87491; 87591; 87797; 99215; A9270; J0330; J1170; J7120; 82731; 87661

== ENCOUNTER 2023-02-09 08:00 | Outpatient (CLI) | payer MEDICAID ==
[2023-02-09 16:37] LABS: BILIRUBIN,URINE NEGATIVE (NEGATIVE); GLUCOSE, URINE (UA) NEGATIVE (NEGATIVE); KETONES,URINE (UA) NEGATIVE (NEGATIVE); LEUKOCYTE ESTERASE, URINE MODERATE (NEGATIVE); NITRITE,URINE NEGATIVE (NEGATIVE); OCCULT BLOOD,URINE NEGATIVE (NEGATIVE); PROTEIN,URINE NEGATIVE (NEGATIVE); UROBILINOGEN,URINE 0.2 (NORMAL) E.U./dL (NORMAL)
[2023-02-09 16:40] LABS: CLARITY,URINE HAZY (CLEAR)
[2023-02-09 16:53] LABS: RBC,URINE 0-5 /HPF (0-5); SQUAMOUS EPITHELIAL CELL,UR FEW Squamous (<= Few)
[2023-02-09 16:54] LABS: BACTERIA,URINE Few /HPF (None Seen)
[2023-02-09 21:34] LABS: CHLAMYDIA TRACHOMATIS DNA NEGATIVE (NEGATIVE); NEISSERIA GONORRHOEAE DNA NEGATIVE (NEGATIVE); TRICHOMONAS VAGINALIS DNA NEGATIVE (NEGATIVE)
== END 2023-02-09 23:59 | disposition home or self-care (01) ==
LOC: LAB.WC 08:00
PROVIDERS: ATTEND Obstetrics & Gynecology
DX: O09.92 Supervision of high risk pregnancy, unspecified, second trimester (principal)
CPT/HCPCS: 81001; 81003; 87086; 87491; 87591; 87661

== ENCOUNTER 2023-02-23 14:28 | Outpatient (CLI) | payer MEDICAID ==
--- NOTE | 2023-02-23 20:15 | Ultrasound Report ---
PROCEDURE: OB Detailed Eval INDICATIONS: SUPERVISION OF HIGH RISK OUTSIDE/PRIOR DATING DATA: Last menstrual period (LMP): 09/11/2022. LMP-based estimated date of delivery (LIAT): 06/18/2023. First dating scan (date and location): 02/23/2023. Estimated date of delivery (LIAT) from first dating scan: 05/11/2023. The below data below was generated using the clinical LIAT of 06/18/2023. TECHNIQUE: Real-time scanning was performed of the fetus, with image documentation and biometric measurements. Endovaginal scanning: Not performed COMPARISON: None. FINDINGS: General: A single living intrauterine gestation is present. Presentation: Cephalic Placenta: Placental position is anterior, without previa. Amniotic fluid index: 20.1 cm, 89th percentile for clinical gestational age. heart rate: 145 beats per minute. Maternal cervical canal: 4.8 cm long; normal length is 2.5 cm or more. biometrics: Biparietal diameter: 7.3 cm, 29 weeks 1 day, greater than 99th percentile Head circumference: 26.7, 29 weeks 1 day, greater than 99th percentile Abdominal circumference: 25.6 cm, 29 weeks 6 days, greater than 99th percentile Femur length: 5.2 cm, 27 weeks 4 days, greater than 99th percentile Estimated gestational age from LMP: 23 weeks 4 days Composite gestational age from present scan: 29 weeks 0 days Estimated weight and percentile: 1311 g, greater than 99th percentile Measurement variability in biometric dating: +/- 10 days from 12-20 weeks gestation, +/- 2 weeks from 20-30 weeks gestation, +/- 3 weeks at 30 weeks gestation or later. Anatomic survey: Neuro: Ventricles are normal at less than 10 mm. Cisterna magna is normal at 3-11 mm. Cerebellum i s normal in size and morphology. Nuchal skin fold: Not evaluated due to gestational age. Face: Nose and lips, facial profile are normal. Spine: No evidence for spina bifida. Heart: 4-chambered heart is present, with normal ventricular outflow tracts. Diaphragm: Diaphragm is intact. Stomach: Left-sided stomach is present. Kidneys: No hydronephrosis. Normal is less than 5 mm in 2nd trimester, less than 7 mm in 3rd trimester. Cord: 3 vessel cord has orthotopic insertion. Bladder: Normal in size. Extremities: All 4 extremities are visualized. IMPRESSION: 1.Single live intrauterine . 2. size is greater than expected for clinical dates, likely due to dating discrepancy rather sixto n macrosomia. Based on the current ultrasound, the gestational age is 29 weeks 0 days giving an ultra sound LIAT of 05/11/2023. 3. anatomic survey is within normal limits for gestational age. Reviewed by: Paulo George MD on 02/23/2023 8:14 PM PST Approved by: Paulo George MD on 02/23/2023 8:14 PM PST Station ID: [id number]
== END 2023-02-23 14:29 | disposition home or self-care (01) ==
LOC: DI 14:28
PROVIDERS: ATTEND Obstetrics & Gynecology
DX: O09.93 Supervision of high risk pregnancy, unspecified, third trimester (principal); Z3A.29 29 weeks gestation of pregnancy

== ENCOUNTER 2023-03-28 18:23 | Inpatient (IN) | payer MEDICAID ==
[2023-03-28] MEDS ORDERED: ceFAZolin (2G) 2 GM in SODIUM CHLORIDE 0.9% MINIBAG 100 ML IV ONE (18:56)
[2023-03-28] MEDS ORDERED: CITRIC ACID/SODIUM CITRATE 15 ML UDC PO ONE (18:56)
[2023-03-28] MEDS ORDERED: ACETAMINOPHEN 500 MG TABLET PO ONE (18:56)
[2023-03-28] MEDS ORDERED: LACTATED RINGERS 1,000 ML IV SCH ×3 (19:00→23:00)
--- NOTE | 2023-03-28 19:01 | HISTORY & PHYSICAL EXAMINATION ---
Admit History - Visit Reason Visit Reason: Other (1. premature rupture membranes2. History of T-shaped uterine incision3. Placental abruption) - : 8 Parity: 5 Premature: 2 Care: positive: [facility] Risk/History: positive: Other (1. History of with T- shaped incision History of vaginal delivery) Smoking Status: Never smoker - Other Maternal History Other Maternal History: 33-year-old -2-1-7 presenting at 34 weeks with rupture of membranes and heavy vaginal bleeding. Patient had contractions starting this morning. Her is complicated by history of a previous section with T-shaped uterine incision for prolonged decel. She also has a history of a normal spontaneous vaginal delivery. Patient has history of ectopic with left salpingo-oophorectomy. - NST Procedure NST Procedure Start Time 12:06 Stop Time 12:32 34 weeks 150, moderate variability, +accels, variable decel Reactive NST Meds/Allgy - Home Medications Home Medications: Ambulatory Orders Medication Instructions Recorded Confirmed Cyclobenzaprine [Flexeril] 10 mg PO BID #10 tab 06/12/20 predniSONE [Deltasone] 40 mg PO DAILY #8 tab 06/12/20 Acetaminophen [Acetaminophen Extra 1,000 mg PO Q8H PRN #60 tablet 11/01/21 Strength] Docusate Sodium 100Mg Capsule 100 - 200 mg PO BID PRN #60 cap 11/01/21 [Colace 100Mg Capsule] Ibuprofen [Motrin] 600 mg PO Q6H PRN #30 tab 11/01/21 oxyCODONE [Roxicodone] 2.5 - 5 mg PO Q4H PRN #24 tablet 11/01/21 - Allergies Allergies/Adverse Reactions: Allergies Allergy/AdvReac Type Severity Reaction Status Date / Time No Known Drug Allergies Allergy Verified 06/12/20 19:28 Review of Systems - Gastrointestinal Gastrointestinal: reports: Abdominal pain (contractions) - All Other Systems All Other Systems: reports: Reviewed and negative Physical - Abdominal Exam Contraction Frequency (min/apart): 4 Contraction Intensity: positive: Strong Uterine Resting Tone: positive: Soft - Monitoring Strip Review: positive: Category I - Presentation Presentation: positive: Breech - Vaginal Exam Membranes: positive: Membranes ruptured - Speculum Exam Findings: positive: Gross leak Plan for Labor - Plan For Labor I expect patient to be DC'd or transferred within 96 hours.: Yes Plan for Labor: 1. PPROM at 34 weeks With heavy vaginal bleeding consistent with placental abruption -Stat CBC, type and screen and coags -Multiparity desires permanent sterilization. Risk, benefits, and alternatives discussed with patient. She understands that this is permanent. Patient has a history of a left salpingo-oophorectomy. Discussed doing a right salpingectomy. If any remaining left tube is visualized this will be removed at the time of surgery. -Repeat section: Risk, benefits, and alternatives discussed with patient at length all questions answered informed consent signed.
[2023-03-28 19:08] LABS: BASOPHILS % (AUTO) 0.1 %; EOSINOPHILS % (AUTO) 0.4 %; HCT - HEMATOCRIT 37.5 % (37.0-47.0); HGB - HEMOGLOBIN 12.5 g/dL (12.0-16.0); LYMPHOCYTES # (AUTO) 1.7 10^3/uL (1.5-3.5); LYMPHOCYTES % (AUTO) 19.9 %; MEAN CORPUSCULAR HEMOGLOBIN 30.1 pg (27.0-31.0); MEAN CORPUSCULAR HGB CONC 33.3 g/dL (32.0-36.0); MEAN CORPUSCULAR VOLUME 90.4 fL (81.0-99.0); MEAN PLATELET VOLUME 9.5 fL (7.9-10.8); MONOCYTES # (AUTO) 0.6 10^3/uL (0.0-1.0); MONOCYTES % (AUTO) 7.4 %; NEUTROPHILS # (AUTO) 6.1 10^3/uL (1.5-6.6); NEUTROPHILS % (AUTO) 71.8 %; PLT - PLATELET COUNT 165 10^3/uL (130-450); RED BLOOD COUNT 4.15 10^6/uL (4.20-5.40); RED CELL DISTRIBUTION WIDTH 13.1 % (12.0-15.0); WHITE BLOOD COUNT 8.5 x10^3/uL (4.8-10.8)
[2023-03-28] MEDS ORDERED: ROCURONIUM 50 MG/5 ML VIAL ONE (19:11)
[2023-03-28] MEDS ORDERED: PROPOFOL 200 MG/20 ML VIAL IVP ONE (19:11)
[2023-03-28] MEDS ORDERED: SUCCINYLCHOLINE 200 MG/10 ML VIAL ONE (19:11)
[2023-03-28] MEDS ORDERED: fentaNYL 100 MCG/2 ML VIAL ONE (19:12)
[2023-03-28] MEDS ORDERED: MORPHINE PF 5 MG/10 ML VIAL ONE (19:19)
[2023-03-28 19:22] LABS: PT - PROTHROMBIN TIME 11.2 secs (9.9-12.6)
[2023-03-28] MEDS ORDERED: PHENYLEPHRINE HCL 0.5 MG/5 ML AMPULE ONE (19:22)
[2023-03-28] MEDS ORDERED: SODIUM CHLORIDE 0.9% 10 ML VIAL IVP ONE ×3 (19:23→20:29)
[2023-03-28] MEDS ORDERED: ePHEDrine 50 MG/ML VIAL IVP ONE (19:23)
[2023-03-28] MEDS ORDERED: FUROSEMIDE 20 MG/2 ML VIAL IVP PRN (19:24)
--- NOTE | 2023-03-28 19:26 | ANESTHESIA ---
Pre-Anesthesia VS, & Labs - Diagnosis ruptured, bleeding, 33 weeks - Procedure repeat C/S Height: 5 ft 7 in - Is Patient ?: Yes - Lab Results Current Lab Results: Laboratory Tests 03/28/23 18:50: WBC 8.5, RBC 4.15 L, Hgb 12.5, Hct 37.5, MCV 90.4, MCH 30.1, MCHC 33.3, RDW 13.1, Plt Count 165, MPV 9.5, Neut # (Auto) 6.1, Lymph # (Auto) 1.7, Esmeralda # (Auto) 0.6, Eos # (Auto) 0.0, Baso # (Auto) 0.0, Absolute Nucleated RBC 0.00, Nucleated RBC % 0.0 Lab results reviewed: Yes Fish Bones: 03/28/23 18:50 Home Medications and Allergies Active Medications Acetaminophen (Acetaminophen 500 Mg Tablet) 1,000 mg PO .ONCE ONE Stop: 03/28/23 18:57 Citric Acid/Sodium Citrate (Citric Acid/Sodium Citrate 15 Ml Udc) 30 ml PO .ONCE ONE Stop: 03/28/23 18:57 Lactated Ringer's (Lr) 1,000 mls @ 125 mls/hr IV .Q8H CAESAR Cefazolin Sodium 2 gm/ Sodium (Chloride) 100 mls @ 200 mls/hr IV ONCE ONE Stop: 03/28/23 19:25 Allergies/Adverse Reactions: Allergies Allergy/AdvReac Type Severity Reaction Status Date / Time No Known Drug Allergies Allergy Verified 06/12/20 19:28 Anes History & Medical History - Medical History Cardiovascular: reports: None Pulmonary: reports: None Gastrointestinal: reports: GERD Urinary: reports: None Neuro: reports: None Musculoskeletal: reports: Chronic back pain, Other Endocrine/Autoimmune: reports: None Blood Disorders: reports: None Skin: reports: None Smoking Status: Never smoker - Surgical History Gynecologic: reports: section, Dilation and currettage, LEEP (Cervical surgery), Other - Obstetrical History : 8 Parity: 5 Events: reports: Other (1. History of with T-shaped incision History of vaginal delivery) Exam General: Alert, Oriented x3, Cooperative Dental: WNL Mouth Openin Fingerbreadth Neck Mobility: Normal Mallampati classification: II Thyromental Distance: 4-6 cm Respiratory: Lungs clear, Normal breath sounds, No respiratory distress Cardiovascular: Regular rate Neurological: Normal speech Mental/Cognitive Status: Alert/Oriented X3 Plan Anesthesia Type: Spinal Regional Block: Per Surgeon's request for Post Op pain control Consent for Procedure(s) Verified and Reviewed: Yes Code Status: Attempt Resuscitation ASA classification: 2-Mild systemic disease Is this case an emergency?: Yes
[2023-03-28] MEDS ORDERED: ceFAZolin 1 GM VIAL ONE (19:40)
[2023-03-28] MEDS ORDERED: fentaNYL 100 MCG/2 ML VIAL IT ONE (19:41)
[2023-03-28] MEDS ORDERED: MORPHINE PF 5 MG/10 ML VIAL IT ONE (19:41)
[2023-03-28] MEDS ORDERED: HEPARIN IV ONE (19:42)
[2023-03-28] MEDS ORDERED: DEXTROSE 10% 250 ML IV ONE (19:42)
[2023-03-28] MEDS ORDERED: METHYLERGONOVINE 0.2 MG/ML VIAL ONE (19:48)
[2023-03-28] MEDS ORDERED: CARBOPROST TROMETHAMINE 250 MCG/ML AMP IM ONE (19:48)
[2023-03-28] MEDS ORDERED: ONDANSETRON 4 MG/2 ML VIAL ONE (19:51)
[2023-03-28] MEDS ORDERED: OXYTOCIN 10 UNIT/ML VIAL ONE (19:56)
[2023-03-28] MEDS ORDERED: diphenhydrAMINE INJ 50 MG/ML VIAL IVP SCH (20:00)
[2023-03-28] MEDS ORDERED: METOCLOPRAMIDE 10 MG/2 ML VIAL IVP PRN ×2 (20:01→20:02)
[2023-03-28] MEDS ORDERED: NALOXONE 0.4 MG/ML VIAL IVP PRN ×2 (20:01→20:02)
[2023-03-28] MEDS ORDERED: ONDANSETRON 4 MG/2 ML VIAL IVP PRN ×2 (20:01→20:02)
[2023-03-28] MEDS ORDERED: ePHEDrine 50 MG/ML VIAL IVP PRN ×2 (20:01→20:02)
[2023-03-28] MEDS ORDERED: diphenhydrAMINE INJ 50 MG/ML VIAL IVP PRN (20:01)
[2023-03-28] MEDS ORDERED: ATROPINE ABBOJECT 1 MG/10 ML SYRINGE IVP PRN (20:02)
[2023-03-28] MEDS ORDERED: HYDROmorphone 0.5 MG/0.5 ML SYRINGE IVP PRN (20:02)
[2023-03-28] MEDS ORDERED: MORPHINE 2 MG/ML CARPUJECT IVP PRN (20:02)
[2023-03-28] MEDS ORDERED: fentaNYL 100 MCG/2 ML VIAL IVP PRN (20:02)
[2023-03-28] MEDS ORDERED: BERACTANT ENDO ONE (20:24)
[2023-03-28] MEDS ORDERED: ROPIVACAINE 0.5% PF 20 ML VIAL ONE (20:28)
[2023-03-28] MEDS ORDERED: DEXAMETHASONE 10 MG/ML VIAL ONE ×2 (20:30→20:31)
[2023-03-28] MEDS ORDERED: ACETAMINOPHEN 1,000 MG/100 ML 1,000 MG/100 ML BAG IV ONE (20:42)
[2023-03-28] MEDS ORDERED: diphenhydrAMINE INJ 50 MG/ML VIAL ONE (20:43)
[2023-03-28] MEDS ORDERED: LACTATED RINGERS 350 ML IV ONE (21:17)
--- NOTE | 2023-03-28 22:05 | ANESTHESIA POST OP EVALUATION ---
Anesthesia Post Eval - Post Anesthesia Eval Vitals: Last Vital Signs Temp 37.2 C 03/28/23 21:40 Pulse 84 03/28/23 21:40 Resp 16 03/28/23 21:40 BP 114/67 03/28/23 21:40 Pulse Ox 100 03/28/23 21:40 O2 Flow Rate CV Function Including HR & BP: Stable Pain Control: Satisfactory Nausea & Vomiting: Negative Mental Status: Baseline Respiratory Status: Airway Patent Hydration Status: Satisfactory Anesthesia Complications: None
[2023-03-28] MEDS ORDERED: OXYTOCIN/SODIUM CHLORIDE 500 ML IV PRN (22:09)
[2023-03-28] MEDS ORDERED: ONDANSETRON ODT 4 MG TABLET TL PRN (22:09)
[2023-03-28] MEDS ORDERED: SIMETHICONE CHEW 80 MG TABLET PO PRN (22:09)
--- NOTE | 2023-03-28 22:09 | PROCEDURE REPORT ---
Hospitalist Procedure Note - Procedure Note Procedure Note: Operative Report Date of procedure: 03/28/23 Preoperative Diagnoses: 1. Intrauterine at 33+6 weeks 2. Premature Rupture of Membranes 3. Abruption 4. History of T shaped uterine incision 5. Short interpregnancy interval 6. Multiparity desires permanent sterlization Postoperative Diagnoses: Same, Uterine Dehiscence Procedure: Repeat Section and Right Salpingectomy Surgeon: Dr. Anderson [employer] Manager: Dunia Lieberman CNM Anesthesia: Spinal EBL: 650 mL Urine output: 150 mL Drains: rivera catheter Complications: Uterine dehiscence Specimens: Placenta, right fallopian tube Findings: 1. Uterine Dehiscence 2.Absent left fallopian tube, patient had history of salpingectomy for ectopic 3.Male infant in breech presentation Indication: Patient is a 33-year-old -2-1-7 presenting at 33 weeks and 6 days with rupture membranes and heavy vaginal bleeding. Patient had a history of a T- shaped uterine incision for a for delivery approximately 1 year ago. Risk, benefits, and alternatives were discussed with patient. All questions were answered. Risk benefits and alternatives of salpingectomy were discussed with the patient. She understands that salpingectomy is permanent sterilization. Discussed risk of contraceptive failure. Procedure: The patient was taken to the OR. An official time-out confirming patient and planned procedure was performed. Regional anesthesia was placed. The patient was placed on the table in supine position with a left tilt. A rivera catheter was placed. The abdomen was prepped and draped in the normal fashion. Anesthesia was found to be adequate. A low transverse skin incision was made with the scalpel and carried down to the fascia. The fascia was incised in the midline and the incision extended bilaterally with the Kraus scissors. The superior aspect of the fascial incision was grasped with Zach clamps, elevated, and the underlying rectus muscle dissected off both bluntly and sharply using Kraus scissors and bovie cauterization. Attention was then turned to the inferior aspect of the fascial incision which, in a similar fashion was grasped, tented up with the Zach clamps, and the rectus muscle dissected off bluntly and sharply using the Kraus scissors. The rectus were in the midline. There were adhesions between the uterus and rectus muscles which were dissected carefully with use of Bovie cautery. The bladder blade was then placed. The bladder was well-visualized inferior and was out of the way of the uterine incision. On the left midportion of the uterus an area of placenta was present and was concerning for percreta. At this time additional staff was called and and patient was counseled on possibility of hysterectomy. Hysterotomy incision was made inferior. The uterus abruptly ruptured at this point with the placenta and the 's right arm protruded from the uterus at the area that was concerning for percreta. The opening in the uterus was laterally bluntly extended. The 's head was atraumatically delivered followed by the shoulders and body. The nose and mouth were bulb suctioned, the cord was clamped and cut, and the infant handed to pediatric staff. A segment of cord was clamped and cut for cord gases. The Remainder of the placenta was manually removed. The uterus was exteriorized. The uterus was inspected and wiped of all debris. The area of uterine dehiscence on the left aspect of the uterus was identified and closed in a running fashion with 0 Vicryl.The uterine incision extended vertically as well which was also closed with 0 Vicryl in a running fashion.The low transverse incision was closed with 0 Vicryl.Additional [id number] sutures of 2-0 Vicryl were used for hemostasis. The incision and extensions were inspected and found to be hemostatic. The left fallopian tube was iatrogenically absent from salpingectomy secondary to previous ectopic . The right fallopian tube was identified and grasped with two merry clamps. The ligasure device was used to cauterize and remove the entirety of the fallopian tube. The right fallopian tub was was sent to pathology. The uterus was then returned to the abdomen. The gutters were cleared of clots. The uterine incision was re-examined and found to be hemostatic. The fascia was then elevated and the rectus muscles and fascia were inspected and bovie cauterization was used to complete hemostasis. An area of the right rectus muscle was reapproximated using [id number] suture of 0 Vicryl. The fascia was closed with a running 0-Vicryl. The subcutaneous tissues were irrigated and bovie cauterization was used to complete any hemostasis. Subcutaneous tissue was closed with 2-0 Vicryl. The skin was closed with subcuticular 4-0 monocryl. The patient tolerated the procedure well and was taken to recovery in stable condition. Lap, needle, sponge, and instrument count were correct times two. Two grams of Cefazolin were given prior to skin incision. Lucy Anderson MD
[2023-03-28] MEDS ORDERED: ACETAMINOPHEN 500 MG TABLET PO SCH (23:00)
[2023-03-28] MEDS ORDERED: IBUPROFEN 600 MG TABLET PO SCH (23:00)
[2023-03-28] MEDS ORDERED: KETOROLAC 30 MG/ML VIAL IVP SCH (23:00)
[2023-03-29] MEDS: KETOROLAC 30 MG/ML VIAL IVP SCH ×3 (00:50→12:41)
[2023-03-29] MEDS: NALBUPHINE 10 MG/ML AMP IVP PRN ×3 (02:51→11:19)
[2023-03-29] MEDS: oxyCODONE 5 MG TABLET PO PRN ×3 (02:52→18:02)
[2023-03-29] MEDS: DOCUSATE SODIUM 100 MG CAPSULE PO SCH ×2 (02:52→08:46)
[2023-03-29] MEDS: ACETAMINOPHEN 500 MG TABLET PO SCH ×2 (04:12→12:40)
[2023-03-29 05:52] LABS: BASOPHILS % (AUTO) 0.3 %; HCT - HEMATOCRIT 32.4 % (37.0-47.0); HGB - HEMOGLOBIN 10.8 g/dL (12.0-16.0); LYMPHOCYTES # (AUTO) 0.8 10^3/uL (1.5-3.5); LYMPHOCYTES % (AUTO) 7.3 %; MEAN CORPUSCULAR HEMOGLOBIN 29.9 pg (27.0-31.0); MEAN CORPUSCULAR HGB CONC 33.3 g/dL (32.0-36.0); MEAN CORPUSCULAR VOLUME 89.8 fL (81.0-99.0); MEAN PLATELET VOLUME 9.1 fL (7.9-10.8); MONOCYTES # (AUTO) 0.5 10^3/uL (0.0-1.0); MONOCYTES % (AUTO) 5.1 %; NEUTROPHILS # (AUTO) 9.1 10^3/uL (1.5-6.6); PLT - PLATELET COUNT 149 10^3/uL (130-450); RED BLOOD COUNT 3.61 10^6/uL (4.20-5.40); RED CELL DISTRIBUTION WIDTH 13.2 % (12.0-15.0); WHITE BLOOD COUNT 10.5 x10^3/uL (4.8-10.8)
[2023-03-29] MEDS: SODIUM CHLORIDE FLUSH 0.9% 10 ML SYRINGE IVP SCH ×2 (07:27→12:41)
[2023-03-29] MEDS: SODIUM CHLORIDE FLUSH 0.9% 10 ML SYRINGE IVP PRN ×2 (11:26→12:41)
--- NOTE | 2023-03-29 12:05 | PROVIDER PROGRESS NOTE ---
Subjective - Prog Note Date Prog Note Date: 03/29/23 Prog Note Time: 12:02 - Subjective Subjective: Patient is postoperative day 1 status post section complicated by uterine rupture, premature rupture membranes and heavy vaginal b leeding. Patient is doing well this morning. She is ambulating, tolerating a diet, spontaneously voiding. Catheter was removed this morning. Pain is well- controlled. Objective - Vital Signs/Intake & Output Reviewed Vital Signs: Yes Vital Signs: Vital Signs x48h Temp Pulse Resp BP Pulse Ox 03/29/23 11:54 97.9 F 65 16 104/60 96 03/29/23 09:59 76 16 97 03/29/23 08:17 65 16 97 03/29/23 07:46 97.7 F 67 16 94/57 L 95 03/29/23 06:45 99 03/29/23 04:30 98 Intake & Output: Intake & Output 03/26/23 03/27/23 03/28/23 03/29/23 23:59 23:59 23:59 23:59 Intake Total 1704 Output Total 1435 Balance 269 - Objective General Appearance: positive: No acute distress Respiratory: positive: Breath sounds nml Cardiovascular: positive: Regular rate & rhythm Abdomen: positive: Non-tender (Appropriately tender. Firm fundus below umbilicus. Dressing was removed, dressing from overnight was saturated. No active bleeding on incision. Incision is closed with suture and is intact.) Extremities: positive: Non-tender, No pedal edema - Lab Results Fish Bones: 03/29/23 05:39 Other Labs: Lab Results x24hrs 03/29/23 03/28/23 03/28/23 Range/Units 05:39 18:50 18:50 WBC 10.5 (4.8-10.8) x10^3/uL RBC 3.61 L (4.20-5.40) 10^6/uL Hgb 10.8 L (12.0-16.0) g/dL Hct 32.4 L (37.0-47.0) % MCV 89.8 (81.0-99.0) fL MCH 29.9 (27.0-31.0) pg MCHC 33.3 (32.0-36.0) g/dL RDW 13.2 (12.0-15.0) % Plt Count 149 (130-450) 10^3/uL MPV 9.1 (7.9-10.8) fL Neut # (Auto) 9.1 H (1.5-6.6) 10^3/uL Lymph # (Auto) 0.8 L (1.5-3.5) 10^3/uL [place] # (Auto) 0.5 (0.0-1.0) 10^3/uL Eos # (Auto) 0.0 (0.0-0.7) 10^3/uL Baso # (Auto) 0.0 (0.0-0.1) 10^3/uL Absolute Nucleated RBC 0.00 x10^3/uL Nucleated RBC % 0.0 /100WBC PT 11.2 (9.9-12.6) secs INR 1.0 (0.8-1.2) APTT 25.0 (24.9-33.3) secs Blood Type O POSITIVE Antibody Screen NEGATIVE Crossmatch IS Only See Detail 03/28/23 Range/Units 18:50 WBC 8.5 (4.8-10.8) x10^3/uL RBC 4.15 L (4.20-5.40) 10^6/uL Hgb 12.5 (12.0-16.0) g/dL Hct 37.5 (37.0-47.0) % MCV 90.4 (81.0-99.0) fL MCH 30.1 (27.0-31.0) pg MCHC 33.3 (32.0-36.0) g/dL RDW 13.1 (12.0-15.0) % Plt Count 165 (130-450) 10^3/uL MPV 9.5 (7.9-10.8) fL Neut # (Auto) 6.1 (1.5-6.6) 10^3/uL Lymph # (Auto) 1.7 (1.5-3.5) 10^3/uL [place] # (Auto) 0.6 (0.0-1.0) 10^3/uL Eos # (Auto) 0.0 (0.0-0.7) 10^3/uL Baso # (Auto) 0.0 (0.0-0.1) 10^3/uL Absolute Nucleated RBC 0.00 x10^3/uL Nucleated RBC % 0.0 /100WBC PT (9.9-12.6) secs INR (0.8-1.2) APTT (24.9-33.3) secs Blood Type Antibody Screen Crossmatch IS Only Assessment/Plan - Problem List (1) Uterine rupture Impression: Patient presented with premature rupture of membranes and heavy vaginal bleeding. During section there was uterine dehiscence with placenta present. Postoperatively patient is doing well. Infant was transferred to [facility] in [place] and was extubated this morning. Routine postoperative care. Qualifiers: Encounter type: initial encounter Qualified Code(s): S37.69XA - Other injury of uterus, initial encounter
--- NOTE | 2023-03-29 12:17 | Discharge Plan ---
Discharge Plan Problem Reviewed?: Yes Disposition: Home, Self Care Condition: Good Prescriptions: oxyCODONE [Roxicodone] 5 mg PO Q4HR PRN #16 tab PRN Reason: PAIN Docusate Sodium 100Mg Capsule [Colace 100Mg Capsule] 100 mg PO BID 15 Days #30 cap Ibuprofen [Motrin] 600 mg PO Q6H PRN #30 tab PRN Reason: Pain 1-4 Diet: Regular Activity Restrictions: no heavy lifting No Smoking: If you smoke, Please STOP! Call for help.
[2023-03-29 16:20] VITALS: BP 102/62; O2SAT 97
--- NOTE | 2023-03-29 17:37 | DISCHARGE SUMMARY ---
"Discharge Summary Admit Date: 03/28/23 Discharge Date: 03/29/23 Discharging Provider: Justin Condition at Discharge: Good Discharge Disposition: 01 Home, Self Care - DIAGNOSES Admission Diagnoses: 1. Intrauterine at 33+6 weeks 2. History of previous T- shaped uterine incision 3. Multiparity desires permanent sterilization 4. PPROM 5. Placental abruption Discharge Diagnoses with Status of Each Condition: same Uterine rupture - CONSULTS | PROCEDURES Procedures: Repeat section and right salpingectomy - HOSPITAL COURSE Hospital Course: Patient is a 33-year-old -2-1-7 who presented at 33 weeks and 6 days patient is a 33-year-old -2-1-7 who presented at 33 weeks and 6 days with ruptured membranes and heavy vaginal bleeding. Patient had a history of a delivery approximately a year ago with a T-shaped uterine incision. Decision was made to proceed for an urgent section given concern for placental abruption. Patient desired permanent sterilization. She had a history of a left salpingectomy for history of ectopic . Risk, benefits, and alternatives were discussed with the patient at length all questions were answered and informed consent was signed. Which is complicated by uterine rupture. She received 1 unit of packed red blood cells in the operating room. Postoperatively patient did well. She was requesting early discharge to be with an male infant Maco who was transferred to NICU in [place]. On postoperative day 1 patient was doing well. Vital signs are stable. Patient is ambulating, tolerating regular diet, spontaneously voiding. Pain is well-controlled. There is a small amount of oozing in the right middle aspect of skin incision. Pressure dressing was placed and patient will follow-up in office tomorrow for evaluation of incision. - ALLERGIES Allergies/Adverse Reactions: Allergies Allergy/AdvReac Type Severity Reaction Status Date / Time No Known Drug Allergies Allergy Verified 06/12/20 19:28 - MEDICATIONS Home Medications: Ambulatory Orders Medication Instructions Recorded Confirmed Docusate Sodium 100Mg Capsule 100 mg PO BID 15 Days #30 cap 03/29/23 [Colace 100Mg Capsule] Ibuprofen [Motrin] 600 mg PO Q6H PRN #30 tab 03/29/23 oxyCODONE [Roxicodone] 5 mg PO Q4HR PRN #16 tab 03/29/23 - PHYSICAL EXAM AT DISCHARGE General Appearance: positive: No acute distress Respiratory: positive: Breath sounds nml Cardiovascular: positive: Regular rate & rhythm Abdomen: positive: Non-tender (Firm fundus below the umbilicus, incision is closed with sutures and is intact. There is a small amount of bleeding in the right middle aspect of the incision. Compression dressing placed) Extremities: positive: Non-tender, No pedal edema - LABS Result Diagrams: 03/29/23 05:39"
--- NOTE | 2023-03-29 18:46 | Labor Flowsheet ---
Labor Flowsheet Datetime Report Generated by CPN: 03/29/2023 18:46 Datetime: 03/28/2023 22:18 VAGINAL EXAM Membranes Ruptured Date/Time: 03/28/2023 17:20 Membranes Rupture Method: Spontaneous Amniotic Fluid Color: Clear Datetime: 03/28/2023 19:26 ASSESSMENT A Monitor Mode: External US FHR Baseline Rate : 165 FHR Baseline Changes: Tachycardia Variability: Moderate 6-25 bpm Accelerations: None Decelerations: Variable Category: Category II Datetime: 03/28/2023 19:00 Frequency (min): 3-6 Datetime: 03/28/2023 18:45 UTERINE ACTIVITY Monitor Mode: External Quality: Moderate Duration (sec): 60-90 Pattern: Normal: <= 5 Contractions in 10 Minutes Resting Tone (Palpate): Relaxed
== END 2023-03-29 18:25 | disposition home or self-care (01) | DRG 783 ==
LOC: WFO 18:23 → FBP 18:25 → WFO 20:34 → FBP 20:38
PROVIDERS: ADMIT Obstetrics & Gynecology Obstetrics; ATTEND Obstetrics & Gynecology Obstetrics
PROC: 0UT50ZZ Resection of Right Fallopian Tube, Open Approach (ICD-10-PCS; 2023-03-28)
PROC: 30233N1 Transfusion of Nonautologous Red Blood Cells into Peripheral Vein, Percutaneous Approach (ICD-10-PCS; 2023-03-28)
PROC: 10D00Z1 Extraction of Products of Conception, Low, Open Approach (ICD-10-PCS; principal; 2023-03-28 19:30)
DX: O42.013 Preterm premature rupture of membranes, onset of labor within 24 hours of rupture, third trimester (principal); O45.93 Premature separation of placenta, unspecified, third trimester; O71.1 Rupture of uterus during labor; N12 Tubulo-interstitial nephritis, not specified as acute or chronic; O99.892 Other specified diseases and conditions complicating childbirth; Z37.0 Single live birth; Z87.59 Personal history of other complications of pregnancy, childbirth and the puerperium; Z90.79 Acquired absence of other genital organ(s); Z90.721 Acquired absence of ovaries, unilateral; O34.218 Maternal care for other type scar from previous cesarean delivery; Z79.52 Long term (current) use of systemic steroids; Z3A.34 34 weeks gestation of pregnancy; Z30.2 Encounter for sterilization; O99.62 Diseases of the digestive system complicating childbirth; K57.90 Diverticulosis of intestine, part unspecified, without perforation or abscess without bleeding
CPT/HCPCS: 36415; 85025; 85610; 85730; 86850; 86900; 86901; 86920; A9270; J0131; J1200; J1642; J2274; J2300; J2372; J2795; J3490; J7120; P9016; 84112; 99215

== ENCOUNTER 2023-03-30 10:46 | Emergency (ER) | payer MEDICAID ==
[2023-03-30 11:01] VITALS: BP 111/57; O2SAT 97
== END 2023-03-30 12:05 | disposition left against medical advice (07) ==
LOC: ED 10:46
DX: Z53.21 Procedure and treatment not carried out due to patient leaving prior to being seen by health care provider (principal)

== ENCOUNTER 2023-12-16 03:52 | Emergency (ER) | payer MEDICAID ==
--- NOTE | 2023-12-16 04:07 | ED Physician Documentation ---
History of Present Illness - Stated complaint Stated Complaint: VOMITING - Chief complaint Chief Complaint: Abd Pain - Additonal information Additional information: 33-year-old female presents with nausea, vomiting, sore throat. She started feeling malaise and frequent nausea and vomiting, nonbloody, in the last day, along with myalgias and sore throat. No fevers, chills, voice changes, shortness of breath, neck symptoms, photophobia, rash, diarrhea, constipation, dysuria, hematuria, urinary frequency, back or flank pain, chest pain. She started her menstrual cycle on time recently. She has mild periumbilical discomfort, not sudden or severe. No sudden or severe headache. No medications taken at home. Family is with her at bedside. No other new concerns. ROS Constitutional: no fever, no chills Eyes: no visual disturbance, no discharge Ears, Nose, Mouth, Throat: no rhinorrhea, +sore throat Cardiovascular: no chest pain, no palpitations Respiratory: no cough, no shortness of breath Gastrointestinal: +abdominal pain, no vomiting, no diarrhea Genitourinary: no dysuria, no hematuria Musculoskeletal: no back pain, no neck stiffness Skin: no rash, no wound Neurological: no focal weakness, no focal numbness PD PAST MEDICAL HISTORY - Past Medical History Past Medical History: Yes Cardiovascular: None Respiratory: None Neuro: None Endocrine/Autoimmune: None GI: GERD : None Musculoskeletal: Chronic back pain, Other Derm: None - Past Surgical History Past Surgical History: Yes /PHP CONSULTANT: section, Dilation and currettage, LEEP (Cervical surgery), Other - Present Medications Home Medications: Ambulatory Orders Medication Instructions Recorded Confirmed Docusate Sodium 100Mg Capsule 100 mg PO BID 15 Days #30 cap 03/29/23 [Colace 100Mg Capsule] Ibuprofen [Motrin] 600 mg PO Q6H PRN #30 tab 03/29/23 oxyCODONE [Roxicodone] 5 mg PO Q4HR PRN #16 tab 03/29/23 - Allergies Allergies/Adverse Reactions: Allergies Allergy/AdvReac Type Severity Reaction Status Date / Time No Known Drug Allergies Allergy Verified 12/16/23 04:03 - Social History Does the pt smoke?: No Smoking Status: Never smoker Does the pt drink ETOH?: No Does the pt have substance abuse?: No - Immunizations Immunizations are current?: Yes - POLST Patient has POLST: No PD ED PE NORMAL - Free text exam Free text exam: Const: no acute distress, non toxic appearing; calm, conversant, pleasant Eyes: PERRLA, EOMI ENT: uvula midline. +posterior oropharyngeal erythema with mild tonsillar swelling bilaterally, no exudate. No edema or swelling of oral cavity including tongue, under tongue, cheeks, submental, sublingual areas. No pain on palpation of throat. No pus or exudate. No drooling. No trismus. No stridor. Neck: supple, non-tender Resp: no respiratory distress, clear to auscultation bilaterally Card: regular tachycardia to low 100s, no murmurs Abd: non tender diffusely on multiple assessments, negative Bautista's sign, no rigidity or rebound or guarding Back: no T or L spine tenderness, no CVA tenderness bilaterally Extrem: no deformities, no swelling bilateral lower extremities Neuro: ANOx4, physician office assistant grossly intact, grossly intact sensation and strength all extremities Skin: no rash, warm and dry Results - Vitals Vitals: Vital Signs - 24 hr 12/16/23 12/16/23 12/16/23 04:01 04:04 06:03 Temperature 36.4 C L Heart Rate 110 H 110 H 90 Respiratory 18 16 Rate Blood Pressure 136/82 H 113/67 O2 Saturation 99 98 Oxygen O2 Source Room air - Labs Labs: Laboratory Tests 12/16/23 12/16/23 12/16/23 04:12 04:12 04:19 WBC 15.1 H RBC 5.08 Hgb 15.7 Hct 45.4 MCV 89.4 MCH 30.9 MCHC 34.6 RDW 13.9 Plt Count 338 MPV 8.7 Neut # (Auto) 12.3 H Lymph # (Auto) 1.8 [place] # (Auto) 0.9 Eos # (Auto) 0.0 Baso # (Auto) 0.1 Absolute Nucleated RBC 0.00 Nucleated RBC % 0.0 Sodium Potassium Chloride Carbon Dioxide Anion Gap BUN Creatinine Estimated GFR (MDRD) Glucose Calcium Total Bilirubin AST ALT Alkaline Phosphatase Total Protein Albumin Globulin Albumin/Globulin Ratio Lipase Urine Color Urine Clarity Urine pH Ur Specific [place] Urine Protein Urine Glucose (UA) Urine Ketones Urine Occult Blood Urine Nitrite Urine Bilirubin Urine Urobilinogen Ur Leukocyte Esterase Urine RBC Urine WBC Ur Squamous Epith Cells Urine Bacteria Ur Microscopic Review Urine Culture Comments Urine HCG, Qual Nasal Adenovirus (PCR) NOT DETECTED Nasal B. parapertussis DNA (PCR) NOT DETECTED Nasal Coronavir 229E PCR NOT DETECTED Nasal Coronavir HKU1 PCR NOT DETECTED Nasal Coronavir NL63 PCR NOT DETECTED Nasal Coronavir OC43 PCR NOT DETECTED Nasal Enterovir/Rhinovir PCR NOT DETECTED Nasal Influenza B PCR NOT DETECTED Nasal Influenza A PCR NOT DETECTED Nasal Parainfluen 1 PCR NOT DETECTED Nasal Parainfluen 2 PCR NOT DETECTED Nasal Parainfluen 3 PCR NOT DETECTED Nasal Parainfluen 4 PCR NOT DETECTED Nasal RSV (PCR) NOT DETECTED Nasal B.pertussis DNA PCR NOT DETECTED Nasal C.pneumoniae (PCR) NOT DETECTED Yoni Human Metapneumo PCR NOT DETECTED Nasal M.pneumoniae (PCR) NOT DETECTED Nasal SARS-CoV-2 (PCR) NOT DETECTED Group A Strep Rapid Negative 12/16/23 12/16/23 04:19 04:49 WBC RBC Hgb Hct MCV MCH MCHC RDW Plt Count MPV Neut # (Auto) Lymph # (Auto) [place] # (Auto) Eos # (Auto) Baso # (Auto) Absolute Nucleated RBC Nucleated RBC % Sodium 132 L Potassium 3.6 Chloride 87 L Carbon Dioxide 20 L Anion Gap 25.0 H BUN 8 Creatinine 0.6 Estimated GFR (MDRD) 114 Glucose 91 Calcium 10.0 Total Bilirubin 1.5 H AST 56 H ALT 28 Alkaline Phosphatase 65 Total Protein 8.8 Albumin 5.3 Globulin 3.5 Albumin/Globulin Ratio 1.5 Lipase 11 Urine Color YELLOW Urine Clarity CLEAR Urine pH 5.5 Ur Specific [place] >=1.030 H Urine Protein NEGATIVE Urine Glucose (UA) NEGATIVE Urine Ketones >=80 H Urine Occult Blood LARGE H Urine Nitrite NEGATIVE Urine Bilirubin SMALL H Urine Urobilinogen 0.2 (NORMAL) Ur Leukocyte Esterase NEGATIVE Urine RBC 0-5 Urine WBC 0-3 Ur Squamous Epith Cells MOD Squamous H Urine Bacteria Few Ur Microscopic Review INDICATED Urine Culture Comments NOT INDICATED Urine HCG, Qual NEGATIVE Nasal Adenovirus (PCR) Nasal B. parapertussis DNA (PCR) Nasal Coronavir 229E PCR Nasal Coronavir HKU1 PCR Nasal Coronavir NL63 PCR Nasal Coronavir OC43 PCR Nasal Enterovir/Rhinovir PCR Nasal Influenza B PCR Nasal Influenza A PCR Nasal Parainfluen 1 PCR Nasal Parainfluen 2 PCR Nasal Parainfluen 3 PCR Nasal Parainfluen 4 PCR Nasal RSV (PCR) Nasal B.pertussis DNA PCR Nasal C.pneumoniae (PCR) Yoni Human Metapneumo PCR Nasal M.pneumoniae (PCR) Nasal SARS-CoV-2 (PCR) Group A Strep Rapid PD Medical Decision Making - ED course ED course: This patients presentation is most suggestive of viral pharyngitis, strep pharyngitis also possible. Patient has benign abdomen, with appendicitis, diverticulitis very unlikely. She has no urinary symptoms or flank tenderness, with pounder for this very unlikely. In this setting, we are obtaining CBC, CMP, lipase, UA, viral swab, strep swab, hCG, giving fluids and Zofran and Tylenol and Toradol and will closely reassess. GAS negative. Viral panel negative. Leukocytosis present in the setting of frequent vomiting. No anemia or thrombocytopenia. Chemistry with mild hyponatremia, hypochloremia, borderline low bicarb, anion gap elevated. AST is mildly elevated, with negative ALT, bilirubin elevation, negative alk phos. Note no right upper quadrant tenderness or pain. I suspect starvation ketoacidosis may be contributory in the setting of frequent nausea and vomiting over the last day and poor p.o. intake. I am ordering pantoprazole and scheduling repeat CBC and CMP for the morning. Lipase reassuring. UA with blood in setting of reported menstruation, no clear infection. Patient improving, with benign abdomen on reassessment. She denies MJ use. This is most consistent currently with viral syndrome and associated starvation ketoacidosis. If she continues improving, and her AG resolves, she would be stable for discharge with Zofran prescription, strict return precautions and close follow up. If not, further testing or admission would be reasonable. Patient and family understand this plan. Work note given to spouse. Signing out to morning physician at 0700 with this plan. Departure - Departure Forms: PCP List
[2023-12-16] MEDS: ONDANSETRON 4 MG/2 ML VIAL IVP STA ×2 (04:15→08:16)
[2023-12-16] MEDS: ACETAMINOPHEN 500 MG TABLET PO STA (04:15)
[2023-12-16] MEDS: SODIUM CHLORIDE 0.9% 1,000 ML IV STA (04:16)
[2023-12-16] MEDS: KETOROLAC 15 MG/ML VIAL IVP STA (04:16)
[2023-12-16 04:28] LABS: RAPID STREP SCREEN Negative (Negative)
[2023-12-16 04:28] LABS: BASOPHILS # (AUTO) 0.1 10^3/uL (0.0-0.1); BASOPHILS % (AUTO) 0.3 %; HCT - HEMATOCRIT 45.4 % (37.0-47.0); HGB - HEMOGLOBIN 15.7 g/dL (12.0-16.0); LYMPHOCYTES # (AUTO) 1.8 10^3/uL (1.5-3.5); LYMPHOCYTES % (AUTO) 11.7 %; MEAN CORPUSCULAR HEMOGLOBIN 30.9 pg (27.0-31.0); MEAN CORPUSCULAR HGB CONC 34.6 g/dL (32.0-36.0); MEAN CORPUSCULAR VOLUME 89.4 fL (81.0-99.0); MEAN PLATELET VOLUME 8.7 fL (7.9-10.8); MONOCYTES # (AUTO) 0.9 10^3/uL (0.0-1.0); MONOCYTES % (AUTO) 6.1 %; NEUTROPHILS # (AUTO) 12.3 10^3/uL (1.5-6.6); NEUTROPHILS % (AUTO) 81.6 %; PLT - PLATELET COUNT 338 10^3/uL (130-450); RED BLOOD COUNT 5.08 10^6/uL (4.20-5.40); RED CELL DISTRIBUTION WIDTH 13.9 % (12.0-15.0); WHITE BLOOD COUNT 15.1 x10^3/uL (4.8-10.8)
[2023-12-16 04:43] LABS: ALBUMIN 5.3 g/dL (3.2-5.5); ALBUMIN/GLOBULIN RATIO 1.5 (1.0-2.2); BILIRUBIN,TOTAL 1.5 mg/dL (0.2-1.0); CREATININE 0.6 mg/dL (0.6-1.3); POTASSIUM 3.6 mmol/L (3.5-4.5); TOTAL PROTEIN 8.8 g/dL (6.4-8.9)
[2023-12-16 04:55] LABS: BILIRUBIN,URINE SMALL (NEGATIVE); GLUCOSE, URINE (UA) NEGATIVE (NEGATIVE); KETONES,URINE (UA) >=80 mg/dL (NEGATIVE); LEUKOCYTE ESTERASE, URINE NEGATIVE (NEGATIVE); NITRITE,URINE NEGATIVE (NEGATIVE); OCCULT BLOOD,URINE LARGE (NEGATIVE); PH,URINE 5.5 PH (5.0-7.5); PROTEIN,URINE NEGATIVE (NEGATIVE); UROBILINOGEN,URINE 0.2 (NORMAL) E.U./dL (NORMAL)
[2023-12-16 05:00] LABS: CLARITY,URINE CLEAR (CLEAR); HCG UR QUAL NEGATIVE
[2023-12-16 05:08] LABS: WBC,URINE 0-3 /HPF (0-5)
[2023-12-16 05:09] LABS: BACTERIA,URINE Few /HPF (None Seen); RBC,URINE 0-5 /HPF (0-5); SQUAMOUS EPITHELIAL CELL,UR MOD Squamous (<= Few)
[2023-12-16] MEDS: PANTOPRAZOLE 40 MG VIAL IV STA (05:13)
[2023-12-16 05:14] LABS: B. PARAPERTUSSIS- RESP PCR PAN NOT DETECTED; B. PERTUSSIS- RESP PCR PANEL NOT DETECTED; C. PNEUMONIAE- RESP PCR PANEL NOT DETECTED; CORONAVIRUS 229E-RESP PCR NOT DETECTED; CORONAVIRUS HKU1-RESP PCR NOT DETECTED; CORONAVIRUS NL63-RESP PCR NOT DETECTED; CORONAVIRUS OC43-RESP PCR NOT DETECTED; HUMAN METAPNEUMOVIRUS NOT DETECTED; INFLUENZA A- RESP PCR PANEL NOT DETECTED; INFLUENZA B - RESP PCR PANEL NOT DETECTED; M. PNEUMONIAE- RESP PCR PANEL NOT DETECTED; PARAINFLUENZA VIRUS 1 NOT DETECTED; PARAINFLUENZA VIRUS 2 NOT DETECTED; PARAINFLUENZA VIRUS 3 NOT DETECTED; PARAINFLUENZA VIRUS 4 NOT DETECTED; RHINOVIRUS/ENTEROVIRUS NOT DETECTED; RSV- RESP PCR PANEL NOT DETECTED; SARS-CoV-2 -RESP PCR PANEL NOT DETECTED
[2023-12-16 07:10] LABS: BASOPHILS % (AUTO) 0.2 %; HCT - HEMATOCRIT 38.9 % (37.0-47.0); HGB - HEMOGLOBIN 13.3 g/dL (12.0-16.0); LYMPHOCYTES # (AUTO) 0.8 10^3/uL (1.5-3.5); LYMPHOCYTES % (AUTO) 7.5 %; MEAN CORPUSCULAR HEMOGLOBIN 30.6 pg (27.0-31.0); MEAN CORPUSCULAR HGB CONC 34.2 g/dL (32.0-36.0); MEAN CORPUSCULAR VOLUME 89.6 fL (81.0-99.0); MEAN PLATELET VOLUME 8.7 fL (7.9-10.8); MONOCYTES # (AUTO) 0.8 10^3/uL (0.0-1.0); MONOCYTES % (AUTO) 6.9 %; NEUTROPHILS # (AUTO) 9.4 10^3/uL (1.5-6.6); PLT - PLATELET COUNT 227 10^3/uL (130-450); RED BLOOD COUNT 4.34 10^6/uL (4.20-5.40); RED CELL DISTRIBUTION WIDTH 13.8 % (12.0-15.0); WHITE BLOOD COUNT 11.1 x10^3/uL (4.8-10.8)
[2023-12-16 07:26] LABS: ALBUMIN 4.1 g/dL (3.2-5.5); ALBUMIN/GLOBULIN RATIO 1.6 (1.0-2.2); BILIRUBIN,TOTAL 1.1 mg/dL (0.2-1.0); CALCIUM 8.4 mg/dL (8.5-10.3); CREATININE 0.6 mg/dL (0.6-1.3); POTASSIUM 3.4 mmol/L (3.5-4.5); TOTAL PROTEIN 6.7 g/dL (6.4-8.9)
[2023-12-16] MEDS: LACTATED RINGERS 1,000 ML IV STA (08:16)
--- NOTE | 2023-12-16 08:32 | ED Physician Documentation ---
ED Addendum - Addendum Addendum: 12/16/23 08:30 The patient states she is feeling improved and more comfortable this morning. She has been sipping on water over the last couple of hours. We can try more substantial but still low volume with perhaps some juice and crackers. She still had some mild nausea. We repeated dose of her dancer Nnamdi and a little bit more fluid. Her repeat labs was showing an decrease in her anion gap from 25-18. Basic electrolytes were still good. At this point can give some more nausea medicine and more formal p.o. challenge and likely discharge with medications for home. I will send Zofran and promethazine suppositories to [facility] pharmacy at her direction. Presume a viral gastroenteritis and likely will have symptoms for couple of more days at least. Disposition: Discharged home in stable condition. Diagnoses: 1. Vomiting and diarrhea 2. Dehydration 12/16/23 08:32
[2023-12-16 09:34] VITALS: BP 105/65; O2SAT 98
== END 2023-12-16 09:32 | disposition home or self-care (01) ==
LOC: ED 03:52
DX: E86.0 Dehydration (principal); R19.7 Diarrhea, unspecified; R11.2 Nausea with vomiting, unspecified
CPT/HCPCS: 36415; 80053; 81001; 81025; 83690; 85025; 87070; 87430; 87633; 96361; 96374; 96375; 96376; 99284; A9270; J7120; 81003; 87086